=== PATIENT | male | born 2000 | race Caucasian/White ===

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

== ENCOUNTER 2019-09-21 18:21 | Emergency (ER) | payer OTHER ==
[~2019-09-21] VITALS: Ht 182.9 cm; Wt 60.8 kg
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
--- OUTSIDE RECORDS SUMMARY | ~2019-09-21 | XMS | Encounter Summary ---
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 1.30 | [facility] | | | PLASMA | | mg/dL | LABORATORY | | | (LAB) | | | SERVICES, | | | | | | [facility] | | [facility] + | | | | | | HEALING | | + +---------+ + + + | EGFR | >60 | >60 mL/min | [facility] | | | - | | | LABORATORY | | | INDONESIAN | | | SERVICES, | | | | | | [facility] | | [facility] + | | | | | | HEALING | | + +---------+ + + + | EGFR NON | >60 | >60 mL/min | [facility] | | | -SHER | | | LABORATORY | | | RICAN | | | SERVICES, | | | | | | [facility] | | | [facility] + | | | | | | HEALING | | + +---------+ + + + | SODIUM, | 141 | 136 - 145 | [facility] | | | PLASMA | | mmol/L | LABORATORY | | | (LAB) | | | SERVICES, | | | | | | [facility] | | | [facility] + | | | | | | HEALING | | + +---------+ + + + | POTASSIUM, | 4.4 | 3.4 - 5.0 | [facility] | | | PLASMA | | mmol/L | LABORATORY | | | (LAB) | | | SERVICES, | | | | | | [facility] | | | | [facility] + | | | | | | HEALING | | + +---------+ + + + | CHLORIDE, | 104 | 97 - 108 mmol/L | [facility] | | | PLASMA | | | LABORATORY | | | (LAB) | | | SERVICES, | | | | | | [facility] | | | [facility] + | | | | | | HEALING | | + +---------+ + + + | TOTAL CO2, | 30 | 21 - 32 mmol/L | [facility] | | | PLASMA | | | LABORATORY | | | (LAB) | | | SERVICES, | | | | | | [facility] | | | | [facility] + | | | | | | HEALING | | + +---------+ + + + | CALCIUM, | 9.2 | 8.6 - 10.2 | [facility] | | | PLASMA | | mg/dL | LABORATORY | | | (LAB) | | | SERVICES, | | | | | | [facility] | | | | [facility] + | | | | | | HEALING | | + +---------+ + + + | ANION GAP | 7 | 4 - 11 mmol/L | [facility] | | | | | | LABORATORY | | | | | | SERVICES, | | | | | | [facility] | | | | [facility] + | | | | | | HEALING | | + +---------+ + + + | POTASSIUM | No Hemo | | [facility] | | | CMNT | | | LABORATORY | | | | | | SERVICES, | | | | | | [facility] | | | | [facility] + | | | | | | HEALING | | + +---------+ + + + | BUN/CREATIN | 15 | 8 - 25 | [facility] | | | INE RATIO | | | LABORATORY | | | | | | SERVICES, | | | | | | [facility] | | | | | | [facility] + | | | | | | HEALING | | + +---------+ + + + + + | Specimen | + + | Blood - Blood | | (substance) | + + + + + | Narrative | Performed At | + + + | GFR is estimated using the MDRD equation recommended by the National | [facility] | | Kidney Disease Education Program. Estimated GFR Interpretive | LABORATORY | | Information: <60 mL/min/1.73 sq m Chronic Kidney | SERVICES, | | Disease <15 mL/min/1.73 sq m Kidney Failure | CENTER FOR | | Estimated GFR greater than 60 mL/min/1.73 sq m is of limited clinical | HEALTH + | | value. The MDRD equation is not valid in the following situations: | HEALING | | - Patients under 18 years of age - Severe malnutrition or obesity | | | - Vegetarian diet - Rapidly changing kidney function - Amputees, | | | paraplegics, or other muscle-wasting diseases | | + + + + + + + + | Performing | Address | City/State/Zipcode | Phone Number | | Organization | | | | + + + + + | [facility] | [address] | [place] [address] | | | [facility] | | | | | HEALTH + HEALING | | | | + + + + + documented in this encounter Visit Diagnoses + + | Diagnosis | + + | Preop examination - Primary Preoperative examination, unspecified | + + | Injury to blood vessels of lower extremity, left, sequela | + + | Left leg pain Pain in limb | + + | Attention deficit hyperactivity disorder (ADHD), unspecified ADHD type | + + | Tobacco use Tobacco use disorder | + + documented in this encounter
--- OUTSIDE RECORDS SUMMARY | ~2019-09-21 | XMS | Encounter Summary ---
Demographics + + + | Address | [address] | | | [place] [address] | + + + | Home Phone | | + + + | Preferred Language | Unknown | + + + | Marital Status | Single | + + + | Judaism Affiliation | Unknown | + + + | Race | Unknown | + + + | Ethnic Group | or | + + + Author + + + | Author | [facility] | + + + | Organization | [facility] | + + + | Address | Unknown | + + + | Phone | Unavailable | + + + Support + + +---------+ + | Name | Relationship | Address | Phone | + + +---------+ + | Jacque Candice | ECON | Unknown | | + + +---------+ + Care Team Providers + +------+ + | Care Military Aircraft Designer Name | Role | Phone | + +------+ + | Bandar Peace MD | PCP | | + +------+ + Reason for Visit +--------+ + | Reason | Comments | +--------+ + | Other | [facility] | +--------+ + Encounter Details +--------+ + + + + | Date | Type | Department | Care Team | Description | +--------+ + + + + | 07/06/ | Telephone | [facility] | Michael Hills MD | Other ([facility] for | | 2020 | | & Rehabilitation | [address] | Amputation ) | | | | [address] | [place], | | | | | [place] | [place] [address] | | | | | [address] | [phone] | | | | | [phone] | | | +--------+ + + + + Social History + + + +--------+------+ | [...] + + documented as of this encounter Plan of Treatment +--------+ + [...] | Pravin Dominguez MD | | | 2020 | Encounter | | [address] | | | | | | [place] | | | | | | [place] [address] | | | | | | [phone] | | | | | | | | +--------+ + + + + | 10/15/ | Surgery | Surgery | Pravin Dominguez MD | LEFT BELOW KNEE | | 2020 | | | [address] | AMPUTATION | | | | | [place], | | | | | | [place] [address] | | | | | | [phone] | | | | | | | | +--------+ + + + + documented as of this encounter Visit Diagnoses Not on filedocumented in this encounter"
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
--- OUTSIDE RECORDS SUMMARY | ~2019-09-21 | XMS | Encounter Summary ---
Demographics + + + | Address | [address] | | | [place] [address] | + + + | Home Phone | | + + + | Preferred Language | Unknown | + + + | Marital Status | Single | + + + | Scientologist Affiliation | Unknown | + + + | Race | Unknown | + + + | Ethnic Group | or | + + + Author + + + | Author | [facility] | + + + | Organization | [facility] | + + + | Address | Unknown | + + + | Phone | Unavailable | + + + Support + + +---------+ + | Name | Relationship | Address | Phone | + + +---------+ + | Jacque Candice | ECON | Unknown | | + + +---------+ + Care Team Providers + +------+ + | Care Sole Splitter Name | Role | Phone | + +------+ + | Bandar Peace MD | PCP | | + +------+ + Encounter Details +--------+ + + + + | Date | Type | Department | Care Team | Description | +--------+ + + + + | 09/12/ | Telephone | Vascular Surgery | Surgery, Vascular | | | 2020 | | at [facility] [address] | [address] | | | | | [address] | | | | | [facility] [place], | [place] [address] | | | | | [address] [place] [address] | | | | | | [place], [place] | | | | | | [address] | | | | | | [phone] | | | +--------+ + + + [...] | 2019 | Encounter | | [address] | | | | | | [place], | | | | | | [place] [address] | | | | | | [phone] | | | | | | | | +--------+ + + + + | 10/15/ | Surgery | Surgery | Pravin Dominguez MD | LEFT BELOW KNEE | | 2019 | | | [address] | AMPUTATION | | | | | [place], | | | | | | [place] [address] | | | | | | [phone] | | | | | | | | +--------+ + + + + documented as of this encounter Visit Diagnoses Not on filedocumented in this encounter"
--- OUTSIDE RECORDS SUMMARY | ~2019-09-21 | XMS | Encounter Summary ---
Demographics + + + | Address | [address] | | | [place] [address] | + + + | Home Phone | | + + + | Preferred Language | Unknown | + + + | Marital Status | Single | + + + | Nondenominational Affiliation | Unknown | + + + | Race | Unknown | + + + | Ethnic Group | or | + + + Author + + + | Author | [facility] | + + + | Organization | [facility] | + + + | Address | Unknown | + + + | Phone | Unavailable | + + + Support + + +---------+ + | Name | Relationship | Address | Phone | + + +---------+ + | Jacque Candice | ECON | Unknown | | + + +---------+ + Care Team Providers + +------+ + | Care Welfare Interviewer Name | Role | Phone | + +------+ + | Bandar Peace MD | PCP | | + +------+ + Encounter Details +--------+ + + + + | Date | Type | Department | Care Team | Description | +--------+ + + + + | 06/06/ | Telephone | Vascular Surgery | Pravin Dominguez MD | | | 2020 | | at [facility] [address] | [address] | | | | | [address] | [address] [place], | | | | | [place], | [place] [address] | | | | | 2nd Floor | [phone] | | | | | [place], [place] | | | | | | [address] | | | | | | [phone] | | | +--------+ + + + + Social History + +-------+ [...] | | | | | | [place] [address] | | | | | | [phone] | | | | | | | | +--------+ + + + + | 10/15/ | Surgery | Surgery | Pravin Dominguez MD | LEFT BELOW KNEE | | 2019 | | | [address] | AMPUTATION | | | | | [place], | | | | | | [place] [address] | | | | | | [phone] | | | | | | | | +--------+ + + + + documented as of this encounter Results [facility] ARTER DUPLEX LOWER EXTREMITY LT (07/06/2019 12:59 PM PST) + + | Specimen | + + | | + + + + + | Narrative | Performed At | + + + | Left: The duplex scanner was used to evaluate the left lower | [facility] | | extremity bypass graft. The ankle/brachial index on the right is 1.17 | RADIOLOGY VASC | | and on the left, 1.27. Flow velocities in the left common femoral | US | | artery to popliteal artery bypass graft are 83 cm/s at the inflow | | | artery, 75 cm/s at the proximal anastomosis, 64 cm/s in mid graft, and | | | 17 cm/s at the distal anastomosis. The outflow artery velocity is | | | 104 cm/s. Conclusions: A patent bypass graft. No stenosis | | | detected. The ankle brachial index is normal bilaterally; 1.17 on the | | | right, 1.27 left. I have personally reviewed the images | | | and, if necessary, edited the report. I agree with the report as | | | now presented. | | + + + + + | Procedure Note | + + | Service Account, [employer] - 07/06/2019 5:46 PM PST Left: The duplex | | scanner was used to evaluate the left lower extremity bypass graft.The ankle/brachial | | index on the right is 1.17 and on the left, 1.27. Flow velocities in the left common | | femoral artery to popliteal artery bypass graft are 83 cm/s at the inflow artery, 75 | | cm/s at the proximal anastomosis, 64 cm/s in mid graft, and 17 cm/s at the distal | | anastomosis. The outflow artery velocity is 104 cm/s.Conclusions: A patent bypass | | graft. No stenosis detected.The ankle brachial index is normal bilaterally; 1.17 on the | | right, 1.27 left. I have personally reviewed the images and, if necessary, edited the | | report. I agree with the report as now presented. | | | | | | | |I have personally reviewed the images and, if necessary, edited the report. I agree with t he report as now presented. | + + + +---------+ + + | Performing | Address | City/State/Zipcode | Phone Number | | Organization | | | | + +---------+ + + | [facility] | | | | | [facility]ASC [facility] | | | | + +---------+ + + documented in this encounter Visit Diagnoses + + | Diagnosis | + + | Injury to blood vessels of left lower extremity, initial encounter - Primary | + + documented in this encounter"
--- OUTSIDE RECORDS SUMMARY | ~2019-09-21 | XMS | Encounter Summary ---
Demographics + + + | Address | [address] | | | [place] [address] | + + + | Home Phone | | + + + | Preferred Language | Unknown | + + + | Marital Status | Single | + + + | Confucianist Affiliation | Unknown | + + + | Race | Unknown | + + + | Ethnic Group | or | + + + Author + + + | Author | [facility] | + + + | Organization | [facility] | + + + | Address | Unknown | + + + | Phone | Unavailable | + + + Support + + +---------+ + | Name | Relationship | Address | Phone | + + +---------+ + | Jacque Candice | ECON | Unknown | | + + +---------+ + Care Team Providers + +------+ + | Care Captain Waiter/Waitress Name | Role | Phone | + +------+ + | Bandar Peace MD | PCP | | + +------+ + Reason for Visit + + + | Reason | Comments | + + + | Question | Calling back with orthotic contact info | + + + Encounter Details +--------+ + + + + | Date | Type | Department | Care Team | Description | +--------+ + + + + | 09/12/ | Telephone | Vascular Surgery | Pravin Dominguez MD | Question (Calling | | 2020 | | at [facility] [address] | [address] | back with orthotic | | | | [address] | [address] [place], | contact info ) | | | | [facility] [place], | [place] [address] | | | | | 2nd Floor | [phone] | | | | | [place], [place] | | | | | | [address] | | | | | | [phone] | | | +--------+ + + + [...] | | | | | | [place] [address] | | | | | | [phone] | | | | | | | | +--------+ + + + + | 10/15/ | Surgery | Surgery | Pravin Dominguez MD | LEFT BELOW KNEE | | 2019 | | | [address] | AMPUTATION | | | | | [place], | | | | | | [place] [address] | | | | | | [phone] | | | | | | | | +--------+ + + + + documented as of this encounter Visit Diagnoses Not on filedocumented in this encounter"
--- OUTSIDE RECORDS SUMMARY | ~2019-09-21 | XMS | Encounter Summary ---
Demographics + + + | Address | [address] | | | [place] [address] | + + + | Home Phone | | + + + | Preferred Language | Unknown | + + + | Marital Status | Single | + + + | Shinto Affiliation | Unknown | + + + | Race | Unknown | + + + | Ethnic Group | or | + + + Author + + + | Author | [facility] | + + + | Organization | [facility] | + + + | Address | Unknown | + + + | Phone | Unavailable | + + + Support + + +---------+ + | Name | Relationship | Address | Phone | + + +---------+ + | Jacque Candice | ECON | Unknown | | + + +---------+ + Care Team Providers + +------+ + | Care Pull Worker Name | Role | Phone | + [...] | | subsequent | FAMILY | [address] [place], | | | | | encounter | MEDICINE | [place] | | | | | | [address] | [address] | | | | | | [address] | Phone: | | | | | | [place], | [phone] | | | | | | [place] [address] | Fax: | | | | | | Phone: | [phone] | | | | | | [phone] | | | | | | | Fax: | | | | | | | [phone] | | + +--------+ + + + [...] | | [address] | [address] [place], | lower extremity, | | | | [place], | [place] [address] | initial encounter | | | | 2nd Floor | [phone] | (Primary Dx) | | | | [place], [place] | | | | | | [address] | | | | | | [phone] | | | +--------+---------+ + + + [...] his left thigh. He was taken to [facility], where the vascular surgeon controlled a popliteal injury but the patient did not have adequate GSV so he repaired the p opliteal artery with a rifampin soaked Dacron graft. The patient was then transferred to [facility], where he had washout of his fasciotomy, [...] ASA indefinitely MD Bandar Jaffe MD [facility] [address] [place] [address] documented in this enco unter Plan of [...] | | | | | [place] [address], | | | | | | [place] [address] | | | | | | [phone] | | | | | | | | +--------+ + + + + | 10/15/ | Surgery | Surgery | Pravin Dominguez MD | LEFT BELOW KNEE | | 2019 | | | [address] | AMPUTATION | | | | | [address] [place], | | | | | | [place] [address] | | | | | | [phone] | | | | | | | | +--------+ + + + + documented as of this encounter Visit Diagnoses + + | Diagnosis | + + | Injury to blood vessels of left lower extremity, initial encounter - Primary | + + documented in this encounter"
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
--- OUTSIDE RECORDS SUMMARY | ~2019-09-21 | XMS | Encounter Summary ---
Demographics + + + | Address | [address] | | | [place] [address] | + + + | Home Phone | | + + + | Preferred Language | Unknown | + + + | Marital Status | Single | + + + | Restorationism Affiliation | Unknown | + + + | Race | Unknown | + + + | Ethnic Group | or | + + + Author + + + | Author | [facility] | + + + | Organization | [facility] | + + + | Address | Unknown | + + + | Phone | Unavailable | + + + Support + + +---------+ + | Name | Relationship | Address | Phone | + + +---------+ + | Jacque Candice | ECON | Unknown | | + + +---------+ + Care Team Providers + +------+ + | Care Low Emission Automobile Designer Name | Role | Phone | + +------+ + | Bandar Peace MD | PCP | | + +------+ + Reason for Referral Consultation (Routine) + +--------+ + + + + | Status | Reason | Specialty | Diagnoses / | Referred By | Referred To | | | | | Procedures | Contact | Contact | + +--------+ + + + + | Authorized | | Orthopedics | Diagnoses | Alberto, | Jeana, | | | | | Compartment | MD Pravin | MD Michael | | | | | syndrome of | [address] | [address] | | | | | lower leg | [place] | [address] | | | | | ([facility]) | [address] | [place], | | | | | Procedures | [place], [place] | [place] | | | | | CONSULT TO | [address] | [address] | | | | | REHAB | Phone: | Phone: | | | | | MEDICINE/ | [phone] | [phone] | | | | | PHYSIATRY | Fax: | Fax: | | | | | | [phone] | [phone] | + +--------+ + + + + Encounter Details +--------+ + + + + | Date | Type | Department | Care Team | Description | +--------+ + + + + | 05/07/ | Manager Helpdesk | Vascular Surgery | Pravin Dominguez MD | Compartment syndrome | | 2019 | | at [facility] [address] | [address] | of lower leg (HCC) | | | | [address] | [place], | (Primary Dx) | | | | [place], | [place] [address] | | | | | 2nd Floor | [phone] | | | | | [place], [place] | | | | | | [address] | | | | | | [phone] | | | +--------+ + + + + Social History + +-------+ +--------+------+ | Tobacco Use | Types | Packs/Day | Years | Date | | | | | Used | | + +-------+ +--------+------+ | Never Assessed | | | | | + +-------+ +--------+------+ + + + | Sex Assigned at [...] | | | | | | [place] [address] | | | | | | [phone] | | | | | | | | +--------+ + + + + | 10/15/ | Surgery | Surgery | Pravin Dominguez MD | LEFT BELOW KNEE | | 2019 | | | [address] | AMPUTATION | | | | | [place], | | | | | | [place] [address] | | | | | | [phone] | | | | | | | | +--------+ + + + + documented as of this encounter Visit Diagnoses + + | Diagnosis | + + | 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
--- OUTSIDE RECORDS SUMMARY | ~2019-09-21 | XMS | Encounter Summary ---
Demographics + + + | Address | [address] | | | [place] [address] | + + + | Home Phone | | + + + | Preferred Language | Unknown | + + + | Marital Status | Single | + + + | Protestant Affiliation | Unknown | + + + | Race | Unknown | + + + | Ethnic Group | or | + + + Author + + + | Author | [facility] | + + + | Organization | [facility] | + + + | Address | Unknown | + + + | Phone | Unavailable | + + + Support + + +---------+ + | Name | Relationship | Address | Phone | + + +---------+ + | Jacque Candice | ECON | Unknown | | + + +---------+ + Care Team Providers + +------+ + | Care Galley Stripper Name | Role | Phone | + +------+ + | Bandar Peace MD | PCP | | + +------+ + Reason for Referral Consult to [place] (Routine) + +--------+ + + + + | Status | Reason | Specialty | Diagnoses / | Referred By | Referred To | | | | | Procedures | Contact | Contact | + +--------+ + + + + | Authorized | | Vascular | Diagnoses | Veto | Viri Vasc | | | | Surgery | Injury to | MD Ruth | Surg [facility] | | | | | blood | [address] | [address] | | | | | vessels of | [facility] | [address] | | | | | left lower | Rd | Physicians | | | | | extremity, | [facility] [place], [place] | Pavilion[address]nd | | | | | initial | [address] | Floor | | | | | encounter | Phone: | [place], [place] | | | | | Procedures | [phone] | [address] | | | | | REQUEST TO | Fax: | Phone: | | | | | SURGERY | [phone] | [phone] | | | | | [employer] | | Fax: | | | | | [place] | | [phone] | | | | | AMPUTATION | | | | | | | LOW LEG THRU | | | | | | | TIB/FIB | | | + +--------+ + + [...] | | [address] | [address] [place], | | | | | [place], | [place] [address] | | | | | 2nd Floor | [phone] | | | | | [place], [place] | | | | | | [address] | | | | | | [phone] | | | +--------+ + + + [...] | | | | | [address] [place], | | | | | | [place] [address] | | | | | | [phone] | | | | | | | | +--------+ + + + + | 10/15/ | Surgery | Surgery | Pravin Dominguez MD | LEFT BELOW KNEE | | 2019 | | | [address] | [address] | | | | | [place], | | | | | | [place] [address] | | | | | | [phone] | | | | | | | | +--------+ + + + + documented as of this encounter Visit Diagnoses + + | Diagnosis | + + | Injury to blood vessels of left lower extremity, initial encounter - Primary | + + documented in this encounter"
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
--- OUTSIDE RECORDS SUMMARY | ~2019-09-21 | XMS | Encounter Summary ---
Demographics + + + | Address | [address] | | | [place] [address] | + + + | Home Phone | | + + + | Preferred Language | Unknown | + + + | Marital Status | Single | + + + | Yarsanism Affiliation | Unknown | + + + | Race | Unknown | + + + | Ethnic Group | or | + + + Author + + + | Author | [facility] | + + + | Organization | [facility] | + + + | Address | Unknown | + + + | Phone | Unavailable | + + + Support + + +---------+ + | Name | Relationship | Address | Phone | + + +---------+ + | Jacque Candice | ECON | Unknown | | + + +---------+ + Care Team Providers + +------+ + | Care Carton Wrapper Name | Role | Phone | + +------+ + | Bandar Peace MD | PCP | | + +------+ + Encounter Details +--------+ + + + + | Date | Type | Department | Care Team | Description | +--------+ + + + + | 07/12/ | Documentati | [facility] | Michael Hills MD | | | 2020 | on | & Rehabilitation | [address] | | | | | [id number] | [facility], | | | | | [address] [place], [place] | [place] [address] | | | | | [address] | [phone] | | | | | [phone] | | | +--------+ + + + [...] | | | | | [address] [place], | | | | | | [place] [address] | | | | | | [phone] | | | | | | | | +--------+ + + + + | 10/15/ | Surgery | Surgery | Pravin Dominguez MD | LEFT BELOW KNEE | | 2019 | | | [address] | [address] | | | | | [place] [address] [place], | | | | | | [place] [address] | | | | | | [phone] | | | | | | | | +--------+ + + + + documented as of this encounter Visit Diagnoses Not on filedocumented in this encounter"
--- OUTSIDE RECORDS SUMMARY | ~2019-09-21 | XMS | Encounter Summary ---
Demographics + + + | Address | [address] | | | [place] [address] | + + + | Home Phone | | + + + | Preferred Language | Unknown | + + + | Marital Status | Single | + + + | Orthodoxy Affiliation | Unknown | + + + [...] Team Providers + +------+ + | Care Building Services Coordinator Name | Role | Phone | + [...] | | | | vessels of | [facility] | [address] | | | | | left lower | Rd | Physicians | | | | | extremity, | [facility], [place] | [address]ilion, [address]nd | | | | | initial | [address] | Floor | | | | | encounter | Phone: | [place], [place] | | | | | Procedures | [phone] | [address] | | | | | REQUEST TO | Fax: | Phone: | | | | | SURGERY | [phone] | [phone] | | | | | [facility] | | Fax: | | | | | [place] | | [phone] | | | | | [address] | [...] | | [address] | [address] [place], | | | | | Phys[place], | [place] [address] | | | | | 2nd Floor | [phone] | | | | | [place], [place] | | | | | | [address] | | | | | | [phone] | | | +--------+ + + + [...] | | | | | [address] [place], | | | | | | [place] [address] | | | | | | [phone] | | | | | | | | +--------+ + + + + | 10/15/ | Surgery | Surgery | Pravin Dominguez MD | LEFT BELOW KNEE | | 2019 | | | [address] | [place] | | | | | [place] [place], | | | | | | [place] [address] | | | | | | [phone] | | | | | | | | +--------+ + + + + documented as of this encounter Visit Diagnoses + + | Diagnosis | + + | Injury to blood vessels of left lower extremity, initial encounter - Primary | + + documented in this encounter"
--- OUTSIDE RECORDS SUMMARY | ~2019-09-21 | XMS | Encounter Summary ---
Demographics + + + | Address | [address] | | | [place] [address] | + + + | Home Phone | | + + + | Preferred Language | Unknown | + + + | Marital Status | Single | + + + | Temple Affiliation | Unknown | + + + | Race | Unknown | + + + | Ethnic Group | or | + + + Author + + + | Organization | Unknown | + + + | Address | Unknown | + + + | Phone | Unavailable | + + + Support + + +---------+ + | Name | Relationship | Address | Phone | + + +---------+ + | Jacque Harvey | ECON | Unknown | | + + +---------+ + Care Team Providers + +------+ + | Care Bee Keeper Name | Role | Phone | + +------+ + | Bandar Peace MD | PCP | | + +------+ + Encounter Details +--------+--------+ + + + | Date | Type | Department | Care Team | Description | +--------+--------+ + + + | 07/06/ | Travel | | | | | 2020 | | | | | +--------+--------+ + + + Social History + + [...] | | | | | | [place] [address] | | | | | | [phone] | | | | | | | | +--------+ + + + + | 10/15/ | Surgery | Surgery | Pravin Dominguez MD | LEFT BELOW KNEE | | 2019 | | | [address] | AMP[place] | | | | | [place], | | | | | | [place] [address] | | | | | | [phone] | | | | | | | | +--------+ + + + + documented as of this encounter Visit Diagnoses Not on filedocumented in this encounter"
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
--- OUTSIDE RECORDS SUMMARY | ~2019-09-21 | XMS | Encounter Summary ---
Demographics + + + | Address | [address] | | | [place] [address] | + + + | Home Phone | | + + + | Preferred Language | Unknown | + + + | Marital Status | Single | + + + | Cheondoism Affiliation | Unknown | + + + | Race | Unknown | + + + | Ethnic Group | or | + + + Author + + + | Author | [facility] | + + + | Organization | [facility] | + + + | Address | Unknown | + + + | Phone | Unavailable | + + + Support + + +---------+ + | Name | Relationship | Address | Phone | + + +---------+ + | Jacque Candice | ECON | Unknown | | + + +---------+ + Care Team Providers + +------+ + | Care Brazer Electronic Name | Role | Phone | + +------+ + | Bandar Peace MD | PCP | | + +------+ + Encounter Details +--------+ + + + + | Date | Type | Department | Care Team | Description | +--------+ + + + + | 05/09/ | Hospital | Radiology at | Michael Hills MD | | | 2019 | Encounter | [place] [address] | [address] | | | | | [address] | [place], | | | | | [place], [place] | [place] [address] | | | | | [address] | [phone] | | | | | [phone] | | | +--------+ + + + [...] + + documented as of this encounter Medications at Time of Discharge + + + +---------+ + + | Medication | Sig | Dispensed | Refills | Start | End Date | | | | | | Date | | + + + +---------+ + + | aspirin EC 81 mg | Take 81 mg by mouth | | 0 | 02/24/20 | | | oral tablet,delayed | once daily. | | | 19 | | | release (DR/EC) | | | | | | + + + +---------+ + + | bisacodyl EC 5 mg | 5 mg once daily as | | 0 | 02/24/20 | | | oral tablet,delayed | needed. | | | 19 | | | release (DR/EC) | | | | | | + + + +---------+ + + | celecoxib 200 mg | Take 200 mg by mouth | | 0 | 05/04/20 | | | oral capsule | once daily at | | | 19 | | | | bedtime. | | | | | + + + +---------+ + + | gabapentin 600 mg | Take 1,200 mg by | | 0 | 02/24/20 | | | oral tablet | mouth three times | | | 19 | | | | daily. | | | | | + + + +---------+ + + | | Take 1-2 tablets by | | 0 | 05/04/20 | | | HYDROcodone-acetamin | mouth every six | | | 19 | | | ophen 10-325 mg oral | hours as needed. | | | | | | tablet | | | | | | + + + +---------+ + + documented as of this encounter [...] | | | | | | [place], | | | | | | [place] [address] | | | | | | [phone] | | | | | | | | +--------+ + + + + | 10/15/ | Surgery | Surgery | Pravin Dominguez MD | LEFT BELOW KNEE | | 2019 | | | [address] | AMP[address] | | | | | [place], | | | | | | [place] [address] | | | | | | [phone] | | | | | | | | +--------+ + + + + documented as of this encounter Procedures + +--------+ + + + | Procedure Name | Priori | Date/Time | Associated Diagnosis | Comments | | | ty | | | | + +--------+ + + + | X-RAY KNEE 3 VIEWS | Routin | 05/09/2019 | Left knee pain, | Results for this | | LEFT | e | 7:45 AM | unspecified | procedure are in the | | | | PST | chronicity | results section. | + +--------+ + + + documented in this encounter Results X-RAY KNEE 3 VIEWS [...] report as now presented. Final signature: Armando M | | | MD Sahil 05/09/2019 8:11 [...] + | Left knee pain, unspecified chronicity | + + documented in this encounter"
--- OUTSIDE RECORDS SUMMARY | ~2019-09-21 | XMS | Encounter Summary ---
Demographics + + + | Address | [address] | | | [place] [address] | + + + | Home Phone | | + + + | Preferred Language | Unknown | + + + | Marital Status | Single | + + + | Christian Affiliation | Unknown | + + + | Race | Unknown | + + + | Ethnic Group | or | + + + Author + + + | Author | [facility] | + + + | Organization | [facility] | + + + | Address | Unknown | + + + | Phone | Unavailable | + + + Support + + +---------+ + | Name | Relationship | Address | Phone | + + +---------+ + | Jacque Candice | ECON | Unknown | | + + +---------+ + Care Team Providers + +------+ + | Care Cooling Tower Operator Name | Role | Phone | + +------+ + | Bandar Peace MD | PCP | | + +------+ + Reason for Visit + + + | Reason | Comments | + + + | Pre-Op Question | pre-op paper work needing to be faxed | + + + Encounter Details +--------+ + + + + | Date | Type | Department | Care Team | Description | +--------+ + + + + | 07/29/ | Telephone | Vascular Surgery | Surgery, Vascular | Pre-Op Question | | 2020 | | at [facility] [address] | [address] | (pre-op paper work | | | | [address] | [address] | needing to be faxed | | | | Physicians [place], | [place] [address] | ) | | | | 2nd Floor | | | | | | [place], [place] | | | | | | [address] | | | | | | [phone] | | | +--------+ + + + [...] | | | | | | [place] [address] | | | | | | [phone] | | | | | | | | +--------+ + + + + | 10/15/ | Surgery | Surgery | Pravin Dominguez MD | LEFT BELOW KNEE | | 2019 | | | [address] | [address] | | | | | [place], | | | | | | [place] [address] | | | | | | [phone] | | | | | | | | +--------+ + + + + documented as of this encounter Visit Diagnoses Not on filedocumented in this encounter"
--- OUTSIDE RECORDS SUMMARY | ~2019-09-21 | XMS | Encounter Summary ---
Demographics + + + | Address | [address] | | | [place] [address] | + + + | Home Phone | | + + + | Preferred Language | Unknown | + + + | Marital Status | Single | + + + | Restoration Affiliation | Unknown | + + + | Race | Unknown | + + + | Ethnic Group | or | + + + Author + + + | Author | [facility] | + + + | Organization | [facility] | + + + | Address | Unknown | + + + | Phone | Unavailable | + + + Support + + +---------+ + | Name | Relationship | Address | Phone | + + +---------+ + | Jacque Candice | ECON | Unknown | | + + +---------+ + Care Team Providers + +------+ + | Care Neonatologist Name | Role | Phone | + [...] | Visit | Medicine Clinic at | HAND CELL TUBER [address] | (Primary Dx); Injury | | | | [facility] | [address] | to blood vessels of | | | | [address] | [place], [place] | lower extremity, | | | | [facility] | [address] | left, sequela; Left | | | | and Healing Building | [phone] | leg pain; Attention | | | | [facility] [place] | | deficit | | | | [address] | | hyperactivity | | | | [phone] | | disorder (ADHD), | | | [...] Nandini Larson FNP - 07/06/2019 11:25 AM [facility] [[email or web address]] PREOPERATIVE INSTRUCTIONS Pre-surgery "homework" * If you have not already done so, please consider getting your flu vaccine before surgery. This is safe and effective before a surgery and recovery. Surgery check-in location: Admitting - [facility] Surgery Check in Time: you will receive a call 1-3 business days before your surgery confi rming your exact arrival/check-in time for your surgery day. We know that planning for surg gladis can be stressful and involve a lot of family/friend/transportation coordination as well as hotel arrangements. The Preoperative Medicine Clinic does not have access to check in [facility], and we encourage you to contact your [...] it is after office hours, call the [facility] cottrell operator at [phone] and ask them to page him or [...] LEFT BKA on 07/12/2019 Proposed Procedure Location: [facility] HISTORY OF PRESENT ILLNESS: Juan Dumont is [...] underwent repair of the popliteal artery at [facility]. He reports ongoing Lef t lower extremity [...] based on this patients comorbid conditions and xmu-cr-cwznqu y care coordination needs Medication management recommendations: [...] patient's care. ELOY So [facility] Building [address] [place] [address] [phone] (fax) [facility] umented in this encounter Plan of Treatment [...] | | | | | | [place] [address] | | | | | | [phone] | | | | | | | | +--------+ + + + + | 10/15/ | Surgery | Surgery | Pravin Dominguez MD | LEFT BELOW KNEE | | 2019 | | | [address] | [address] | | | | | [place], | | | | | | [place] [address] | | | | | | [phone] | | | | | | | [...] | + +--------+ + + + | AL COLLECTION VENOUS | Routin | 07/06/2019 | [...] [facility] | [address] | [place] [address] | | | SERVICES, | [address] [...] | + + + + + | [facility] | [address] | [place] [address] | | | SERVICES, | [address] [...] [facility] | [address] | [place] [address] | | | SERVICES, | [address] [...] SERVICES, | | | | | | [facility] | | | | | [facility] + | | | | | | [facility]ALING | | + +-------+ + + + | RED CELL | 4.67 | 4.50 - 6.00 | [facility] | | | COUNT | | M/cu mm | LABORATORY | | | | | | SERVICES, | | | | | | [facility] | | | | | | [...] LABORATORY | [address] | [place] [address] | | | [facility] | | | | | HEALTH [...] | | | LABORATORY | | | [place] | | | SERVICES, | | | [...] MDRD equation recommended by the National | [facility] | | Kidney Disease Education Program. Estimated [...] | + + + + + | [facility] | [address] | [place] [address] | | | [facility] | | | | | HEALTH + [...]
--- OUTSIDE RECORDS SUMMARY | ~2019-09-21 | XMS | Encounter Summary ---
Demographics + + + | Address | [address] | | | [place] [address] | + + + | Home Phone | | + + + | Preferred Language | Unknown | + + + | Marital Status | Single | + + + | Mandaen Affiliation | Unknown | + + + | Race | Unknown | + + + | Ethnic Group | or | + + + Author + + + | Author | [facility] | + + + | Organization | [facility] | + + + | Address | Unknown | + + + | Phone | Unavailable | + + + Support + + +---------+ + | Name | Relationship | Address | Phone | + + +---------+ + | Jacque Candice | ECON | Unknown | | + + +---------+ + Care Team Providers + +------+ + | Care Farm Appraiser Name | Role | Phone | + [...] | | | | Physicians [place], | [place] [address] | | | | | [address] [place] [address] | | | | | | [place], [place] | | | | | | [address] | | | | | | [phone] | | | +--------+ + + + [...] | | | | | | [place], | | | | | | [place] [address] | | | | | | [phone] | | | | | | | | +--------+ + + + + | 10/15/ | Surgery | Surgery | Pravin Dominguez MD | LEFT BELOW KNEE | | 2019 | | | [address] | AMPUTATION | | | | | [place], | | | | | | [place] [address] | | | | | | [phone] | | | | | | | | +--------+ + + + + documented as of this encounter Visit Diagnoses Not on filedocumented in this encounter"
--- OUTSIDE RECORDS SUMMARY | ~2019-09-21 | XMS | Encounter Summary ---
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
--- OUTSIDE RECORDS SUMMARY | ~2019-09-21 | XMS | Encounter Summary ---
Demographics + + + | Address | [address] | | | [place] [address] | + + + | Home Phone | | + + + | Preferred Language | Unknown | + + + | Marital Status | Single | + + + | Pentecostal Affiliation | Unknown | + + + | Race | Unknown | + + + | Ethnic Group | or | + + + Author + + + | Author | [facility] | + + + | Organization | [facility] | + + + | Address | Unknown | + + + | Phone | Unavailable | + + + Support + + +---------+ + | Name | Relationship | Address | Phone | + + +---------+ + | Jacque Candice | ECON | Unknown | | + + +---------+ + Care Team Providers + +------+ + | Care Resin Coater Name | Role | Phone | + +------+ + | Bandar Peace MD | PCP | | + +------+ + Encounter Details +--------+ + + + + | Date | Type | Department | Care Team | Description | +--------+ + + + + | 07/06/ | Hospital | Diagnostic Imaging | Pravin Dominguez MD | | | 2020 | Encounter | Services at [facility] | [address] | | | | | [address] | [place], | | | | | [facility] | [place] [address] | | | | | Nathaniel, [address] [place] [address] | [phone] | | | | | [place], [place] | | | | | | [address] | | | | | | [phone] | | | +--------+ + + + [...] | | | | | | [place] [address] | | | | | | [phone] | | | | | | | | +--------+ + + + + | 10/15/ | Surgery | Surgery | Pravin Dominguez MD | LEFT BELOW KNEE | | 2019 | | | [address] | AMPUTATION | | | | | [place] | | | | | | [place] [address] | | | | | | [phone] | | | | | | | [...] | | + +--------+ + + + documented in this encounter Results VASC LAB ARTER DUPLEX LOWER EXTREMITY LT (07/06/2019 [...] Note | + + | Service Account, [employer] In Interface - 07/06/2019 5:46 PM PST [...] vessels of left lower extremity, initial encounter | + + documented in this encounter"
--- OUTSIDE RECORDS SUMMARY | ~2019-09-21 | XMS | Encounter Summary ---
Demographics + + + | Address | [address] | | | [place] [address] | + + + | Home Phone | | + + + | Preferred Language | Unknown | + + + | Marital Status | Single | + + + | Confucianism Affiliation | Unknown | + + + | Race | Unknown | + + + | Ethnic Group | or | + + + Author + + + | Author | [facility] | + + + | Organization | [facility] | + + + | Address | Unknown | + + + | Phone | Unavailable | + + + Support + + +---------+ + | Name | Relationship | Address | Phone | + + +---------+ + | Jacque Candice | ECON | Unknown | | + + +---------+ + Care Team Providers + +------+ + | Care Obstetrical Tech Name | Role | Phone | + +------+ + | Unknown | PCP | Unavailable | + +------+ + Reason for Visit +--------+ + | Reason | Comments | +--------+ + | Trauma | | +--------+ + Encounter Details +--------+ + + + + | Date | Type | Department | Care Team | Description | +--------+ + + + + | 05/04/ | Telephone | Vascular Surgery | Pravin Dominguez MD | Trauma | | 2019 | | at [facility] [address] | [address] | | | | | [place] | [address] [place] | | | | | Physicians [place], | [place] [address] | | | | | 2nd Floor | [phone] | | | | | [place], [place] | | | | | | [address] | | | | | | [phone] | | | +--------+ + + + [...] | | | | | | [place] [address] | | | | | | [phone] | | | | | | | | +--------+ + + + + | 10/15/ | Surgery | Surgery | Pravin Dominguez MD | LEFT BELOW KNEE | | 2019 | | | [address] | AMPUTATION | | | | | [place], | | | | | | [place] [address] | | | | | | [phone] | | | | | | | | +--------+ + + + + documented as of this encounter Visit Diagnoses Not on filedocumented in this encounter"
--- OUTSIDE RECORDS SUMMARY | ~2019-09-21 | XMS | Encounter Summary ---
Demographics + + + | Address | [address] | | | [place] [address] | + + + | Home Phone | | + + + | Preferred Language | Unknown | + + + | Marital Status | Single | + + + | Tenriism Affiliation | Unknown | + + + | Race | Unknown | + + + | Ethnic Group | or | + + + Author + + + | Author | [facility] | + + + | Organization | [facility] | + + + | Address | Unknown | + + + | Phone | Unavailable | + + + Support + + +---------+ + | Name | Relationship | Address | Phone | + + +---------+ + | Jacque Candice | ECON | Unknown | | + + +---------+ + Care Team Providers + +------+ + | Care Medical Information Officer Name | Role | Phone | + +------+ + PCP | Unavailable | + +------+ + Encounter Details +--------+ + + + + | Date | Type | Department | Care Team | Description | +--------+ + + + + | 03/29/ | Abstract | Vascular Surgery | Surgery, Vascular | | | 2019 | | at [facility] [address] | [address] | | | | | [address] | [address] | | | | | Physicians [place], | [place] [address] | | | | | [address] [place] [address] | | | | | | [place], [place] | | | | | | [address] | | | | | | [phone] | | | +--------+ + + + [...] | | | | | Amanda Beard [place], | | | | | | [place] [address] | | | | | | [phone] | | | | | | | | +--------+ + + + + | 10/15/ | Surgery | Surgery | Pravin Dominguez MD | LEFT BELOW KNEE | | 2019 | | | [address] | AMPUTATION | | | | | [place], | | | | | | [place] [address] | | | | | | [phone] | | | | | | | | +--------+ + + + + documented as of this encounter Visit Diagnoses Not on filedocumented in this encounter"
--- OUTSIDE RECORDS SUMMARY | ~2019-09-21 | XMS | Encounter Summary ---
Demographics + + + | Address | [address] | | | [place] [address] | + + + | Home Phone | | + + + | Preferred Language | Unknown | + + + | Marital Status | Single | + + + | Church Affiliation | Unknown | + + + [...] Team Providers + +------+ + | Care Garment Alteration Examiner Name | Role | Phone | + +------+ + | Bandar Peace MD | PCP | | + +------+ + Encounter Details +--------+ + + + + | Date | Type | Department | Care Team | Description | +--------+ + + + + | 07/06/ | Anesthesia | Preoperative | Nandini Larson, | | | 2020 | Event | [facility] at | CINDER CRANE OPERATOR [address] | | | | | [facility] | [facility] | | | | | [address] | [place], [place] | | | | | [facility] | [address] | | | | | [facility] | [phone] | | | | | [address] [place], [place] | | | | | | [address] | | | | | | [phone] | | | +--------+ + + + + Anesthesia Record + + [...] | | | | | | [place] [address] | | | | | | [phone] | | | | | | | | +--------+ + + + + | 10/15/ | Surgery | Surgery | Pravin Dominguez MD | LEFT BELOW KNEE | | 2020 | | | [address] | AMPUTATION | | | | | [place], | | | | | | [place] [address] | | | | | | [phone] | | | | | | | | +--------+ + + + + documented as of this encounter Visit Diagnoses Not on filedocumented in this encounter"
--- OUTSIDE RECORDS SUMMARY | ~2019-09-21 | XMS | Encounter Summary ---
Demographics + + + | Address | [address] | | | [place] [address] | + + + | Home Phone | | + + + | Preferred Language | Unknown | + + + | Marital Status | Single | + + + | Buddhism Affiliation | Unknown | + + + [...] Team Providers + +------+ + | Care Group Work Program Aide Name | Role | Phone | + [...] | | [address] | [address] [place], | | | | | Physicians [place], | [place] [address] | | | | | 2nd Floor | [phone] | | | | | [place], [place] | | | | | | [address] | | | | | | [phone] | | | +--------+ + + + [...] | | | | | | [place] [address] | | | | | | [phone] | | | | | | | | +--------+ + + + + | 10/15/ | Surgery | Surgery | Pravin Dominguez MD | LEFT BELOW KNEE | | 2019 | | | [address] | AMPUTATION | | | | | [place], | | | | | | [place] [address] | | | | | | [phone] | | | | | | | | +--------+ + + + + documented as of this encounter Results [facility] ARTER DUP[facility]OWER EXTREMITY LT [...] Note | + + | Service Account, [employer] In Interface - 07/06/2019 5:46 PM PST [...]
--- OUTSIDE RECORDS SUMMARY | ~2019-09-21 | XMS | Encounter Summary ---
Demographics + + + | Address | [address] | | | [place] [address] | + + + | Home Phone | | + + + | Preferred Language | Unknown | + + + | Marital Status | Single | + + + | Catholic Affiliation | Unknown | + + + [...] Team Providers + +------+ + | Care Upsetter Setter Up Name | Role | Phone | + [...] | [address] | [place] [address] [place], | | | | | [facility] | [place] [address] | | | | | Nathaniel, [address] [place] [address] | [phone] | | | | | [place], [place] | | | | | | [address] | | | | | | [phone] | | | +--------+ + + + [...] | | | | | | [place] [address] | | | | | | [phone] | | | | | | | | +--------+ + + + + | 10/15/ | Surgery | Surgery | Pravin Dominguez MD | LEFT BELOW KNEE | | 2019 | | | [address] | AMPUTATION | | | | | [place] | | | | | | [place] [address] | | | | | | [phone] | | | | | | | [...] Note | + + | Service Account, [employer] In Interface - 07/06/2019 5:46 PM [...]
--- OUTSIDE RECORDS SUMMARY | ~2019-09-21 | XMS | Encounter Summary ---
Demographics + + + | Address | [address] | | | [place] [address] | + + + | Home Phone | | + + + | Preferred Language | Unknown | + + + | Marital Status | Single | + + + | Lutheran Affiliation | Unknown | + + + | Race | Unknown | + + + | Ethnic Group | or | + + + Author + + + | Author | [facility] | + + + | Organization | [facility] | + + + | Address | Unknown | + + + | Phone | Unavailable | + + + Support + + +---------+ + | Name | Relationship | Address | Phone | + + +---------+ + | Jacque Candice | ECON | Unknown | | + + +---------+ + Care Team Providers + +------+ + | Care Commodity Loan Clerk Name | Role | Phone | + [...] | | [place] | [address] [place] | | | | | Physicians [place], | [place] [address] | | | | | 2nd Floor | [phone] | | | | | [place], [place] | | | | | | [address] | | | | | | [phone] | | | +--------+ + + + [...] | | | | | | [place] [address] | | | | | | [phone] | | | | | | | | +--------+ + + + + | 10/15/ | Surgery | Surgery | Pravin Dominguez MD | LEFT BELOW KNEE | | 2019 | | | [address] | AMPUTATION | | | | | [place], | | | | | | [place] [address] | | | | | | [phone] | | | | | | | | +--------+ + + + + documented as of this encounter Visit Diagnoses Not on filedocumented in this encounter"
--- OUTSIDE RECORDS SUMMARY | ~2019-09-21 | XMS | Encounter Summary ---
Demographics + + + | Address | [address] | | | [place] [address] | + + + | Home Phone | | + + + | Preferred Language | Unknown | + + + | Marital Status | Single | + + + | Zoroastrianism Affiliation | Unknown | + + + [...] Team Providers + +------+ + | Care Inventory Checker Name | Role | Phone | + +------+ + | Bandar Peace MD | PCP | | + +------+ + Encounter Details +--------+--------+ + + + | Date | Type | Department | Care Team | Description | +--------+--------+ + + + | 05/09/ | Travel | | | | | 2019 | | | | | +--------+--------+ + + + Social History + +-------+ [...] | | | | | | [place] [address] | | | | | | [phone] | | | | | | | | +--------+ + + + + | 10/15/ | Surgery | Surgery | Pravin Dominguez MD | LEFT BELOW KNEE | | 2019 | | | [address] | AMPUTATION | | | | | [place] | | | | | | [place] [address] | | | | | | [phone] | | | | | | | | +--------+ + + + + documented as of this encounter Visit Diagnoses Not on filedocumented in this encounter"
--- OUTSIDE RECORDS SUMMARY | ~2019-09-21 | XMS | Encounter Summary ---
Demographics + + + | Address | [address] | | | [place] [address] | + + + | Home Phone | | + + + | Preferred Language | Unknown | + + + | Marital Status | Single | + + + | Hindu Affiliation | Unknown | + + + | Race | Unknown | + + + | Ethnic Group | or | + + + Author + + + | Author | [facility] | + + + | Organization | [facility] | + + + | Address | Unknown | + + + | Phone | Unavailable | + + + Support + + +---------+ + | Name | Relationship | Address | Phone | + + +---------+ + | Jacque Candice | ECON | Unknown | | + + +---------+ + Care Team Providers + +------+ + | Care Financial Business Analyst Name | Role | Phone | + [...] | | [address] | [address] [place], | contact info ) | | | | [facility], | [place] [address] | | | | | 2nd Floor | [phone] | | | | | [place], [place] | | | | | | [address] | | | | | | [phone] | | | +--------+ + + + [...] | | | | | | [place] [address] | | | | | | [phone] | | | | | | | | +--------+ + + + + | 10/15/ | Surgery | Surgery | Pravin Dominguez MD | LEFT BELOW KNEE | | 2019 | | | [address] | AMPUTATION | | | | | [place], | | | | | | [place] [address] | | | | | | [phone] | | | | | | | | +--------+ + + + + documented as of this encounter Visit Diagnoses Not on filedocumented in this encounter"
--- OUTSIDE RECORDS SUMMARY | ~2019-09-21 | XMS | Encounter Summary ---
Demographics + + + | Address | [address] | | | [place] [address] | + + + | Home Phone | | + + + | Preferred Language | Unknown | + + + | Marital Status | Single | + + + | Anabaptism Affiliation | Unknown | + + + | Race | Unknown | + + + | Ethnic Group | or | + + + Author + + + | Author | [facility] | + + + | Organization | [facility] | + + + | Address | Unknown | + + + | Phone | Unavailable | + + + Support + + +---------+ + | Name | Relationship | Address | Phone | + + +---------+ + | Jacque Candice | ECON | Unknown | | + + +---------+ + Care Team Providers + +------+ + | Care Lumber Planer Name | Role | Phone | + [...] | | | | | | | [address] | | | | | | | [place] | | | | | | | [place] | | | | | | | [place], [place] | | | | | | | [address] | | | | | | | Phone: | | | | | | | [phone] | | | | | | | Fax: | | | | | | | [phone] | | +--------+--------+ + + + + [...] | | [address] | [address] [place], | | | | | Physicians [place], | [place] [address] | | | | | [address] [place] [address] | [phone] | | | | | [place], [place] | | | | | | [address] | | | | | | [phone] | | | +--------+ + + + [...] | | | | | | [place] [address] | | | | | | [phone] | | | | | | | | +--------+ + + + + | 10/15/ | Surgery | Surgery | Pravin Dominguez MD | LEFT BELOW KNEE | | 2019 | | | [address] | AMPUTATION | | | | | [place] | | | | | | [place] [address] | | | | | | [phone] | | | | | | | [...]
--- OUTSIDE RECORDS SUMMARY | ~2019-09-21 | XMS | Encounter Summary ---
Demographics + + + | Address | [address] | | | [place] [address] | + + + | Home Phone | | + + + | Preferred Language | Unknown | + + + | Marital Status | Single | + + + | Jewish Affiliation | Unknown | + + + | Race | Unknown | + + + | Ethnic Group | or | + + + Author + + + | Author | [facility] | + + + | Organization | [facility] | + + + | Address | Unknown | + + + | Phone | Unavailable | + + + Support + + +---------+ + | Name | Relationship | Address | Phone | + + +---------+ + | Jacque Candice | ECON | Unknown | | + + +---------+ + Care Team Providers + +------+ + | Care Marketing Analytics Analyst Name | Role | Phone | [...] | | 2019 | Encounter | [place] [address] | [address] | | | | | [address] | [place], | | | | | [place], [place] | [place] [address] | | | | | [address] | [phone] | | | | | [phone] | | | +--------+ + + + [...] | | | | | | [place] [address] | | | | | | [phone] | | | | | | | | +--------+ + + + + | 10/15/ | Surgery | Surgery | Pravin Dominguez MD | LEFT BELOW KNEE | | 2019 | | | [address] | AMPUTATION | | | | | [place], | | | | | | [place] [address] | | | | | | [phone] | | | | | | | | +--------+ + + + + documented as of this encounter Procedures + +--------+ + + + | Procedure Name | Priori | Date/Time | Associated Diagnosis | Comments | | | ty | | | | + +--------+ + + + | X-RAY PELVIS 2 VIEWS | Routin | 05/09/2019 | Left knee pain, | Results for this | | | e | 7:45 AM | unspecified | procedure are in the | | | | PST | chronicity | results section. | + +--------+ + + + documented in this encounter Results X-RAY PELVIS 2 VIEWS (05/09/2019 7:45 AM [...]
--- OUTSIDE RECORDS SUMMARY | ~2019-09-21 | XMS | Encounter Summary ---
Demographics + + + | Address | [address] | | | [place] [address] | + + + | Home Phone | | + + + | Preferred Language | Unknown | + + + | Marital Status | Single | + + + | Jain Affiliation | Unknown | + + + | Race | Unknown | + + + | Ethnic Group | or | + + + Author + + + | Author | [facility] | + + + | Organization | [facility] | + + + | Address | Unknown | + + + | Phone | Unavailable | + + + Support + + +---------+ + | Name | Relationship | Address | Phone | + + +---------+ + | Jacque Candice | ECON | Unknown | | + + +---------+ + Care Team Providers + +------+ + | Care Exceptional Needs Teacher Name | Role | Phone | + +------+ + | Bandar Peace MD | PCP | | + +------+ + Reason for Visit + + + | Reason | Comments | + + + | Referral | L leg | + + + Encounter Details +--------+ + + + + | Date | Type | Department | Care Team | Description | +--------+ + + + + | 05/07/ | Abstract | [facility] | Note, Orthopedics | Referral (L leg) | | 2019 | | & Rehabilitation | Clinic | | | | | [address] | | | | | | [address] [place], [place] | | | | | | [address] | | | | | | [phone] | | | +--------+ + + + [...] + + documented as of this encounter Progress Notes Mai Esetla - 05/07/2019 9:08 AM PST Orthopaedics New Patient Record Check List Please ask the following questions: Comments Date requested Records/Imaging received? If so, what format? Where? What would you like to be seen for (body part and laterality)? L leg eval for amputation DOI, if applicable? Feb 10 Prior Surgery (for this body part)? Yes, when: Jan; where: [facility] in [place], also [facility] in [place] Called [facility] to request notes and images 05/07 Have you seen anyone for this yet? Yes, when: ; where: [facility]. Peace in [facility] Also [facility] fax [phone] Do you have a referring provider? yes who: Dr. Alberto MARTINEZ Directed referral?: yes - Michael X-Ray Yes, when: Jan; where: [facility] 05/07 via phone MRI No Other Imaging (CT, Ultrasound, etc.) No Is this a W/C injury? no If YES, create referral and complete: .[email or web address] inside referral Note: We do not accept WC under [place] as they do not pay at [place] rates. Other out of state claims will only be accepted if they agree to pay at [place] rates wilmer almonteed in writing from adjustor. Can you confirm the insurance we will be billing for this visit? Prov Note: If OHP, please note which type. E.g. [place], [employer], [employer], etc.) Reminder: Please create referrals for pts with: HMO, OHP, [place], Self-Pay, W/C, TPL an d ED Post- Ops Can you verify your Primary Care Provider? yes who: Dr. Peace Note: Please update Primary Care Provider in [place]. Are you a current smoker or tobacco user? yes If YES, please let patient know that they must be 4 weeks smoke/tobacco-free, tested and do cumented by PCP before having a surgical consult. Height & Weight, if unable to locate in notes or chart. Last recorded patient height: No data found for Ht No data found for this vital: BMI Patient reported height: 5 11 Patient reported weight: 140 Note: If over provider BMI preference, for REVIEW. Are you diabetic? no No results found for: A1C Patient reported A1C: n/a Note: If over provider A1C preference, for REVIEW. Medical Review needed? No If yes, create referral Reminders: ? Ask patient if they d like to sign up for MyChart ? Don t forget to pull in CareEveryWhere Additional Comments: documented in this encounte r Plan of Treatment +--------+ + + + [...] | | | | | | [place] [address] | | | | | | [phone] | | | | | | | | +--------+ + + + + | 10/15/ | Surgery | Surgery | Pravin Dominguez MD | LEFT BELOW KNEE | | 2019 | | | [address] | AMPUTATION | | | | | [place] | | | | | | [place] [address] | | | | | | [phone] | | | | | | | | +--------+ + + + + documented as of this encounter Visit Diagnoses Not on filedocumented in this encounter"
--- OUTSIDE RECORDS SUMMARY | ~2019-09-21 | XMS | Encounter Summary ---
Demographics + + + | Address | [address] | | | [place] [address] | + + + | Home Phone | | + + + | Preferred Language | Unknown | + + + | Marital Status | Single | + + + | Jew Affiliation | Unknown | + + + [...] Team Providers + +------+ + | Care Tandem Mill Roller Name | Role | Phone | + [...] | | | | | | [place] [address] | | | | | | [phone] | | | | | | | | +--------+ + + + + | 10/15/ | Surgery | Surgery | Pravin Dominguez MD | LEFT BELOW KNEE | | 2019 | | | [address] | AMPUT[address] | | | | | [place] | | | | | | [place] [address] | | | | | | [phone] | | | | | | | | +--------+ + + + + documented as of this encounter Visit Diagnoses Not on filedocumented in this encounter"
--- OUTSIDE RECORDS SUMMARY | ~2019-09-21 | XMS | Encounter Summary ---
Demographics + + + | Address | [address] | | | [place] [address] | + + + | Home Phone | | + + + | Preferred Language | Unknown | + + + | Marital Status | Single | + + + | Presybeterian Affiliation | Unknown | + + + | Race | Unknown | + + + | Ethnic Group | or | + + + Author + + + | Author | [facility] | + + + | Organization | [facility] | + + + | Address | Unknown | + + + | Phone | Unavailable | + + + Support + + +---------+ + | Name | Relationship | Address | Phone | + + +---------+ + | Jacque Candice | ECON | Unknown | | + + +---------+ + Care Team Providers + +------+ + | Care Dobby Loom Fixer Name | Role | Phone | + [...] Rocky Patel | | | | | ([facility]) | [address] | [place], | | | | | Procedures | [place], [place] | [place] | | | | | [place]ULT [place] | [address] | [address] | | | | | REHAB | Phone: | Phone: | | | | | MEDICINE/ | [phone] | [phone] | | | | | PHYSIATRY | Fax: | Fax: | | | | | | [phone] | [phone] | + +--------+ + + + + Encounter Details +--------+ + + + + | Date | Type | Department | Care Team | Description | +--------+ + + + + | 05/07/ | Director Asset | Vascular Surgery | Pravin Dominguez MD | Compartment syndrome | | 2019 | | at [facility] [address] | [address] | of lower leg (HCC) | | | | [address] | [place], | (Primary Dx) | | | | Phys[place], | [place] [address] | | | | | 2nd Floor | [phone] | | | | | [place], [place] | | | | | | [address] | | | | | | [phone] | | | +--------+ + + + [...] | | | | | | [place] [address] | | | | | | [phone] | | | | | | | | +--------+ + + + + | 10/15/ | Surgery | Surgery | Pravin Dominguez MD | LEFT BELOW KNEE | | 2019 | | | [address] | AMPUTATION | | | | | [place], | | | | | | [place] [address] | | | | | | [phone] | | | | | | | | +--------+ + + + + documented as of this encounter Visit Diagnoses + + | Diagnosis | + + | 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
--- OUTSIDE RECORDS SUMMARY | ~2019-09-21 | XMS | Encounter Summary ---
Demographics + + + | Address | [address] | | | [place] [address] | + + + | Home Phone | | + + + | Preferred Language | Unknown | + + + | Marital Status | Single | + + + | Mosque Affiliation | Unknown | + + + | Race | Unknown | + + + | Ethnic Group | or | + + + Author + + + | Author | [facility] | + + + | Organization | [facility] | + + + | Address | Unknown | + + + | Phone | Unavailable | + + + Support + + +---------+ + | Name | Relationship | Address | Phone | + + +---------+ + | Jacque Candice | ECON | Unknown | | + + +---------+ + Care Team Providers + +------+ + | Care Periodontal Assistant Name | Role | Phone | [...] | | | | [address] | [address] | | | | | Phys[facility] [place], | [place] [address] | | | | | [address] [place] [address] | | | | | | [place], [place] | | | | | | [address] | | | | | | [phone] | | | +--------+ + + + [...] | | | | | [place], | | | | | | [place] [address] | | | | | | [phone] | | | | | | | | +--------+ + + + + | 10/15/ | Surgery | Surgery | Pravin Dominguez MD | LEFT BELOW KNEE | | 2019 | | | [address] | AMPUTATION | | | | | [place], | | | | | | [place] [address] | | | | | | [phone] | | | | | | | | +--------+ + + + + documented as of this encounter Visit Diagnoses Not on filedocumented in this encounter"
--- OUTSIDE RECORDS SUMMARY | ~2019-09-21 | XMS | Encounter Summary ---
Demographics + + + | Address | [address] | | | [place] [address] | + + + | Home Phone | | + + + | Preferred Language | Unknown | + + + | Marital Status | Single | + + + | Druze Affiliation | Unknown | + + + | Race | Unknown | + + + | Ethnic Group | or | + + + Author + + + | Author | [facility] | + + + | Organization | [facility] | + + + | Address | Unknown | + + + | Phone | Unavailable | + + + Support + + +---------+ + | Name | Relationship | Address | Phone | + + +---------+ + | Jacque Candice | ECON | Unknown | | + + +---------+ + Care Team Providers + +------+ + | Care Asphalt Machine Operator Name | Role | Phone | [...] | Clinic | | | | | [address] | | | | | | [address] [place], [place] | | | | | | [address] | | | | | | [phone] | | | +--------+ + + + [...] as of this encounter Progress Notes Mai Estela - 05/07/2019 9:08 AM PST Orthopaedics New Patient Record Check List Please ask the following questions: Comments Date requested Records/Imaging received? If so, what format? Where? What would you like to be seen for (body part and laterality)? L leg eval for amputation DOI, if applicable? Feb 10 Prior Surgery (for this body part)? Yes, when: Jan; where: [facility] in [place], also [facility] in [place] Called [facility] to request notes and images 05/07 Have you seen anyone for this yet? Yes, when: ; where: Dr. Peace in [facility] Also [facility] Fax 05/07 to [facility], fax [phone] Do you have a referring provider? yes who: Dr. Alberto MARTINEZ Directed referral?: yes - Michael X-Ray Yes, when: Jan; where: [facility] 05/07 via phone MRI No Other Imaging (CT, Ultrasound, etc.) No Is this a W/C injury? no If YES, create referral and complete: .ORTWCNEWPATIENT inside referral Note: We do not accept WC under [place] as they do not pay at [place] rates. Other out of state claims will only be accepted if they agree to pay at [place] rates wilmer almonteed in writing from adjustor. Can you confirm the insurance we will be billing for this visit? Prov Note: If OHP, please note which type. E.g. [employer], [employer], [employer], etc.) Reminder: Please create referrals for pts with: HMO, OHP, Barber, Self-Pay, W/C, TPL an d ED Post- Ops Can you verify your Primary Care Provider? yes who: Dr. Peace Note: Please update Primary Care Provider in GoToTags. Are you a current smoker or tobacco [...] | | | | | | [place] [address] | | | | | | [phone] | | | | | | | | +--------+ + + + + | 10/15/ | Surgery | Surgery | Pravin Dominguez MD | LEFT BELOW KNEE | | 2019 | | | [address] | AMPUTATION | | | | | [place] | | | | | | [place] [address] | | | | | | [phone] | | | | | | | | +--------+ + + + + documented as of this encounter Visit Diagnoses Not on filedocumented in this encounter"
--- OUTSIDE RECORDS SUMMARY | ~2019-09-21 | XMS | Encounter Summary ---
Demographics + + + | Address | [address] | | | [place] [address] | + + + | Home Phone [...] Team Providers + +------+ + | Care Fire Investigation Lieutenant Name | Role | Phone | + +------+ + | Bandar Peace MD | PCP | | + +------+ + Encounter Details +--------+ + + + + | Date | Type | Department | Care Team | Description | +--------+ + + + + | 07/06/ | Anesthesia | Preoperative | Nandini Larson, | | | 2020 | Event | [facility] | BAND ATTACHER [address] | | | | | [facility] | [facility] | | | | | [address] | [place], [place] | | | | | [facility] | [address] | | | | | and [facility] | [phone] | | | | | [address] [place], [place] | | | | | | [address] | | | | | | [phone] | | | +--------+ + + + [...] | | | | | | [place] [address] | | | | | | [phone] | | | | | | | | +--------+ + + + + | 10/15/ | Surgery | Surgery | Pravin Dominguez MD | LEFT BELOW KNEE | | 2020 | | | [address] | AMPUTATION | | | | | [place], | | | | | | [place] [address] | | | | | | [phone] | | | | | | | | +--------+ + + + + documented as of this encounter Visit Diagnoses Not on filedocumented in this encounter"
--- OUTSIDE RECORDS SUMMARY | ~2019-09-21 | XMS | Encounter Summary ---
Demographics + + + | Address | [address] | | | [place] [address] | + + + | Home Phone | | + + + | Preferred Language | Unknown | + + + | Marital Status | Single | + + + | Islam Affiliation | Unknown | + + + | Race | Unknown | + + + | Ethnic Group | or | + + + Author + + + | Author | [facility] | + + + | Organization | [facility] | + + + | Address | Unknown | + + + | Phone | Unavailable | + + + Support + + +---------+ + | Name | Relationship | Address | Phone | + + +---------+ + | Jacque Candice | ECON | Unknown | | + + +---------+ + Care Team Providers + +------+ + | Care Community Development Officer Name | Role | Phone | [...] | | | | | | [place], | | | | | | | [place] | | | | | | | [address] | | | | | | | Phone: | | | | | | | [phone] | | | | | | | Fax: | | | | | | | [phone] | + +--------+ + + + + Encounter Details +--------+---------+ + + + | Date | Type | Department | Care Team | Description | +--------+---------+ + + + | 05/09/ | Office | [facility] | Michael Hills MD | Left knee pain, | | 2019 | Visit | & Rehabilitation | [address] | unspecified | | | | [address] | [place], | chronicity (Primary | | | | [address] [place], [place] | [place] [address] | Dx) | | | | [address] | [phone] | | | | | [phone] | | | +--------+---------+ + + + [...] asked that a patient seen here at [facility] seek a second opinion on the need for a BKA. Pema mare obtained one at [facility] and said they are making [...] history: Reports/records sent to be scanned into [employer] system. 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 Pertinent items: Physical examination: BP 110/70 [...] following our visit here 2. Will visit [employer] [facility] with Naomie today following 3. At this time, leaning toward BKA with prosthetic 4. Family unsure at this time who would perform the amputation, if they do continue to move forward with amputation. 5. Follow up PRN Michael Hills M.D. [facility] Certified [facility] documented in this [...] | | | | | | [place] [address] | | | | | | [phone] | | | | | | | | +--------+ + + + + | 10/15/ | Surgery | Surgery | Pravin Dominguez MD | LEFT BELOW KNEE | | 2019 | | | [address] | AMPUTATION | | | | | [place] | | | | | | [place] [address] | | | | | | [phone] | | | | | | | [...]
--- OUTSIDE RECORDS SUMMARY | ~2019-09-21 | XMS | Encounter Summary ---
Demographics + + + | Address | [address] | | | [place] [address] | + + + | Home Phone | | + + + | Preferred Language | Unknown | + + + | Marital Status | Single | + + + | Faith Affiliation | Unknown | + + + | Race | Unknown | + + + | Ethnic Group | or | + + + Author + + + | Author | [facility] | + + + | Organization | [facility] | + + + | Address | Unknown | + + + | Phone | Unavailable | + + + Support + + +---------+ + | Name | Relationship | Address | Phone | + + +---------+ + | Jacque Candice | ECON | Unknown | | + + +---------+ + Care Team Providers + +------+ + | Care Bd Special Education Teacher Name | Role | Phone | [...] | Amputation ) | | | | [address] | [place] [address] [place], | | | | | [place] | [place] [address] | | | | | [address] | [phone] | | | | | [phone] | | | +--------+ + + + [...] Hospital | Adult Acute Care | Pravin Dominugez MD | | | 2020 | Encounter | | [address] | | | | | | [place] | | | | | | [place] [address] | | | | | | [phone] | | | | | | | | +--------+ + + + + | 10/15/ | Surgery | Surgery | Pravin Dominguez MD | LEFT BELOW KNEE | | 2020 | | | [address] | AMPUTATION | | | | | [place], | | | | | | [place] [address] | | | | | | [phone] | | | | | | | | +--------+ + + + + documented as of this encounter Visit Diagnoses Not on filedocumented in this encounter"
--- OUTSIDE RECORDS SUMMARY | ~2019-09-21 | XMS | Encounter Summary ---
Demographics + + + | Address | [address] | | | [place] [address] | + + + | Home Phone | | + + + | Preferred Language | Unknown | + + + | Marital Status | Single | + + + | Caodaism Affiliation | Unknown | + + + [...] Team Providers + +------+ + | Care Dairy Helper Name | Role | Phone | + +------+ + | Bandar Peace MD | PCP | | + +------+ + Encounter Details +--------+ + + + + | Date | Type | Department | Care Team | Description | +--------+ + + + + | 05/09/ | Hospital | Radiology at | Michael iHlls MD | | | 2019 | Encounter | [place] [address] | [address] | | | | | [address] | [place], | | | | | [place], [place] | [place] [address] | | | | | [address] | [phone] | | | | | [phone] | | | +--------+ + + + [...] | | | | | | [place] [address] | | | | | | [phone] | | | | | | | | +--------+ + + + + | 10/15/ | Surgery | Surgery | Pravin Dominguez MD | LEFT BELOW KNEE | | 2019 | | | [address] | AMPUTATION | | | | | [place], | | | | | | [place] [address] | | | | | | [phone] | | | | | | | [...]
--- OUTSIDE RECORDS SUMMARY | ~2019-09-21 | XMS | Encounter Summary ---
Demographics + + + | Address | [address] | | | [place] [address] | + + + | Home Phone | | + + + | Preferred Language | Unknown | + + + | Marital Status | Single | + + + | Congregation Affiliation | Unknown | + + + [...] Team Providers + +------+ + | Care Seed Corn Production Manager Name | Role | Phone | + [...] [address] | | | | | [address] | [facility], | | | | | Ct [place], [place] | [place] [address] | | | | | [address] | [phone] | | | | | [phone] | | | +--------+ + + + [...] | | | | | [place] [address] [place], | | | | | | [place] [address] | | | | | | [phone] | | | | | | | | +--------+ + + + + | 10/15/ | Surgery | Surgery | Pravin Dominguez MD | LEFT BELOW KNEE | | 2019 | | | [address] | AMPUTATION | | | | | [place], | | | | | | [place] [address] | | | | | | [phone] | | | | | | | | +--------+ + + + + documented as of this encounter Visit Diagnoses Not on filedocumented in this encounter"
--- OUTSIDE RECORDS SUMMARY | ~2019-09-21 | XMS | Encounter Summary ---
Demographics + + + | Address | [address] | | | [place] [address] | + + + | Home Phone | | + + + | Preferred Language | Unknown | + + + | Marital Status | Single | + + + | Scientology Affiliation | Unknown | + + + | Race | Unknown | + + + | Ethnic Group | or | + + + Author + + + | Author | [facility] | + + + | Organization | [facility] | + + + | Address | Unknown | + + + | Phone | Unavailable | + + + Support + + +---------+ + | Name | Relationship | Address | Phone | + + +---------+ + | Jacque Candice | ECON | Unknown | | + + +---------+ + Care Team Providers + +------+ + | Care Program Advocate Name | Role | Phone | + [...] | | | | [facility] [address], | [place] [address] | ) | | | | 2nd Floor | | | | | | [place], [place] | | | | | | [address] | | | | | | [phone] | | | +--------+ + + + [...] | | | | | | [place] [address] | | | | | | [phone] | | | | | | | | +--------+ + + + + | 10/15/ | Surgery | Surgery | Pravin Dominguez MD | LEFT BELOW KNEE | | 2019 | | | [address] | AMPUTATION | | | | | [place], | | | | | | [place] [address] | | | | | | [phone] | | | | | | | | +--------+ + + + + documented as of this encounter Visit Diagnoses Not on filedocumented in this encounter"
--- OUTSIDE RECORDS SUMMARY | ~2019-09-21 | XMS | Encounter Summary ---
Demographics + + + | Address | [address] | | | [place] [address] | + + + | Home Phone | | + + + | Preferred Language | Unknown | + + + | Marital Status | Single | + + + | Roman Catholic Affiliation | Unknown | + + [...] Team Providers + +------+ + | Care Children'S Aide Name | Role | Phone | [...] | | 2019 | Encounter | [place] [address] | [address] | | | | | [address] | [place], | | | | | [place], [place] | [place] [address] | | | | | [address] | [phone] | | | | | [phone] | | | +--------+ + + + [...] | | | | | | [place] [address] | | | | | | [phone] | | | | | | | | +--------+ + + + + | 10/15/ | Surgery | Surgery | Pravin Dominguez MD | LEFT BELOW KNEE | | 2019 | | | [address] | AMPUTATION | | | | | [place], | | | | | | [place] [address] | | | | | | [phone] | | | | | | | [...]
--- OUTSIDE RECORDS SUMMARY | ~2019-09-21 | XMS | Clinical Summary ---
Demographics + + + | Address | [address] | | | [place] [address] | + + + | Home Phone | | + + + | Preferred Language | Unknown | + + + | Marital Status | Single | + + + | Anabaptist Affiliation | Unknown | + + + | Race | Unknown | + + + | Ethnic Group | or | + + + Author + + + | Author | [facility] | + + + | Organization | [facility] | + + + | Address | Unknown | + + + | Phone | Unavailable | + + + Support + + +---------+ + | Name | Relationship | Address | Phone | + + +---------+ + | Jacque Harvey | ECON | Unknown | | + + +---------+ + Care Team Providers + +------+ + | Care Stone Setter Name | Role | Phone | + +------+ + | Bandar Peace MD | PCP | | + +------+ + Source Comments MICHELLE is fully live on both EpicCare Ambulatory and EpicCare InPatient.[facility] Allergies + + + + + + [...] | 2019 | Event | Medicine | ELEVATOR RUNNER | | +--------+ + + + + | 07/06/ | Hospital | Radiology | Pravin Dominguez MD | | | 2019 | Encounter | | | | +--------+ + + + + | 07/06/ | Office | Pre-operative | Nandini Larson, | Preop examination | | 2019 | Visit | Medicine | ELEVATOR RUNNER | (Primary Dx); Injury | | | [...] | | | | | | [place] [address] | | | | | | [phone] | | | | | | | | +--------+ + + + + | 10/15/ | Surgery | Surgery | Pravin Dominguez MD | LEFT BELOW KNEE | | 2019 | | | [address] | AMPUTATION | | | | | [place], | | | | | | [place] [address] | | | | | | [phone] | | | | | | | [...] | + +--------+ + + + | ND COLLECTION VENOUS | Routin | 07/06/2019 | [...] + + from Last 3 Months Results [facility] ARTER DUPLEX LOWER EXTREMITY LT (07/06/2019 12:59 PM PST) + + | Specimen | + + | | + + + + + | Narrative | Performed At | + + + | Left: The duplex scanner was used to evaluate the left lower | [facility] | | extremity bypass graft. The ankle/brachial index on the right is 1.17 | RADIOLOGY [facility] | | and on the left, 1.27. [...] Note | + + | Service Account, No World Borders In Interface - 07/06/2019 5:46 PM PST [...] [facility] | [address] | [place] [address] | | | SERVICES, | [address] [...] LABORATORY | [address] | [place] [address] | | | SERVICES, [facility] | | | | | HEALTH [...] | | | LABORATORY | | | CYMRO | | | SERVICES, | | | [...] MDRD equation recommended by the National | [facility] | | Kidney Disease Education Program. Estimated [...] | + + + + + | [facility] | [address] | [place] [address] | | | SERVICES, [facility] | | | | | HEALTH [...] [facility] | [address] | [place] [address] | | | SERVICES, | [address] [...] | + + + + + | [facility] | [address] | [place] [address] | | | SERVICES, | [address] [...] | + +--------+ +--------+ + +------+ | [facility] | PHP | [phone] | 05/30/19 | [phone] | [address] | [address] | | | [address] | | [address] | [address] | | [address] | | sent | | [place], | | | | [place] | | | | [place] [address] | | + +--------+ +--------+ + +------+ [...] | 1999 | [phone] | [place] [address] | | | jack | | | 9 (Home) | | + +--------+ +--------+ + +
[2019-09-21] MEDS ORDERED: CELECOXIB200 MG PO (18:37)
[2019-09-21] MEDS ORDERED: HYDROCODON-ACE1 EAC8 PO (18:38)
[2019-09-21] MEDS ORDERED: GABAPENTIN600 MG PO (18:38)
[2019-09-21] MEDS ORDERED: CHILDREN'S ASPI81 M1 PO (18:39)
--- NOTE | 2019-09-22 01:19 | EKG ---
[facility] [address] [facility] [address] [place], [place] [address] Signed Normal sinus rhythm Normal ECG Confirmed by SARAH VELAZQUEZ MD ([id number]) on 09/22/2019 1:18:54 AM Electronically Signed By: SARAH VELAZQUEZ MD 09/22/19 0119 PATIENT NAME: JOSE G ORTIZ ALLI Electrocardiogram DATE OF : 89 PHYSICIAN: SARAH VELAZQUEZ MD REPORT #: [id number] REPORT IS CONFIDENTIAL AND NOT TO BE RELEASED WITHOUT AUTHORIZATION
== END 2019-09-21 23:00 | disposition home or self-care (01) ==
LOC: ED 18:21
DX: R07.9 Chest pain, unspecified (principal); F90.9 Attention-deficit hyperactivity disorder, unspecified type; F17.200 Nicotine dependence, unspecified, uncomplicated; Z88.5 Allergy status to narcotic agent; Z79.899 Other long term (current) drug therapy
CPT/HCPCS: 71045; 71260; 80053; 84484; 85025; 85379; 93005; 93010; 99285-25; Q9967

== ENCOUNTER 2020-07-10 16:26 | Emergency (ER) | payer OTHER ==
[~2020-07-10] VITALS: Ht 182.9 cm; Wt 56.7 kg
[~2020-07-10 16:26] MED LIST changes: +CELECOXIB200 MG PO; +CHILDREN'S ASPI81 M1 PO; +GABAPENTIN600 MG PO; +HYDROCODON-ACE1 EAC8 PO
== END 2020-07-10 19:10 | disposition home or self-care (01) ==
LOC: ED 16:26
DX: S41.011A Laceration without foreign body of right shoulder, initial encounter (principal); S13.9XXA Sprain of joints and ligaments of unspecified parts of neck, initial encounter; V59.9XXA Occupant (driver) (passenger) of pick-up truck or van injured in unspecified traffic accident, initial encounter; F17.200 Nicotine dependence, unspecified, uncomplicated; Z88.5 Allergy status to narcotic agent; Z79.899 Other long term (current) drug therapy; Z79.82 Long term (current) use of aspirin
CPT/HCPCS: 12001; 72040; 73030; 99284-25; J1885

== ENCOUNTER 2020-11-02 19:11 | Emergency (ER) | payer OTHER ==
[~2020-11-02] VITALS: Ht 182.9 cm; Wt 56.7 kg
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
== END 2020-11-02 20:59 | disposition home or self-care (01) ==
LOC: ED 19:11
DX: S09.90XA Unspecified injury of head, initial encounter (principal); V89.2XXA Person injured in unspecified motor-vehicle accident, traffic, initial encounter; F17.200 Nicotine dependence, unspecified, uncomplicated; Z88.5 Allergy status to narcotic agent
CPT/HCPCS: 70450; 99284-25

== ENCOUNTER 2023-10-07 19:45 | Inpatient (IN) | payer OTHER ==
[~2023-10-07] VITALS: Ht 180.3 cm; Wt 70.7 kg
[~2023-10-07 19:45] MED LIST changes: +BACTRIM DS TAB1 EACH PO; +MUPIROCIN22 GM TOP
[2023-10-07] MEDS ORDERED: LACTATED RINGER'S 1,000 ML IV SCH ×2 (20:45→22:00)
[2023-10-07] MEDS ORDERED: ondansetron HCL 4 MG/2 ML VIAL IV ONE (20:45)
[2023-10-07] MEDS ORDERED: MORPHINE SULFATE 4 MG/ML VIAL IV ONE (20:45)
[2023-10-07 20:54] LABS: BASOPHILS 0.8 % (0-2); EOSINOPHILS 0.6 % (0-6); HEMATOCRIT 40.9 % (35.0-50.0); HEMOGLOBIN 13.6 g/dL (12.0-18.0); LYMPHOCYTES 17.4 % (24-44); MCH 31.1 (27-36); MCHC 33.3 g/dl (30-36); MCV 93.5 fl (81-99); NEUTROPHILS 72.2 % (39-80); PLATELET COUNT 317 K/uL (140-440); RBC 4.37 M/ul (4.3-5.7); RDW 14.5 (10.5-15.0)
[2023-10-07 21:00] LABS: INR 0.9 (0.80-1.30); PROTIME 11.4 Sec (11.2-14.2)
[2023-10-07 21:06] LABS: ALBUMIN 3.9 g/dL (3.4-5.0); ALBUMIN/GLOBULIN RATIO 0.98 (1.1-2.4); ANION GAP 13.1 (7-21); BILIRUBIN, TOTAL 0.3 ng/dL (0.2-1.0); BUN/CREATININE RATIO 11.65 (6.0-28.6); CALCIUM 8.5 mg/dL (8.5-10.1); CREATININE, SERUM 1.03 mg/dL (0.70-1.30); POTASSIUM 4.1 mmol/L (3.5-5.1); PROTEIN, TOTAL 7.9 g/dL (6.4-8.2)
[2023-10-07] MEDS ORDERED: FAMOTIDINE 20 MG/ 2 ML VIAL IV SCH (21:53)
[2023-10-07 21:58] LABS: BILIRUBIN, URINE NEGATIVE (negative); BLOOD/HGB, URINE NEGATIVE (Negative); KETONE, URINE NEGATIVE (Negative); LEUK ESTERASE, URINE NEGATIVE (negative); NITRITE, URINE NEGATIVE (negative); PH, URINE 7.5 (5-7)
[2023-10-07] MEDS ORDERED: HYDROmorphone HCL 1 MG/ML SYR IV PRN (22:00)
[2023-10-07] MEDS ORDERED: ondansetron HCL 4 MG/2 ML VIAL IV PRN (22:00)
--- NOTE | 2023-10-07 23:00 | NUR ---
pt ARRIVED TO MS FLOOR, PRIMARY RN IN ROOM AND ASSISTING WITH pt CARES. pt ORIENTED TO ROOM, CALL LIGHT IN REACH. RIGHT BOOT IN PLACE WLONG WITH AN ICE PACK. pt IN GOOD SPIRITS, TV GUIDE AND REMOTE IN REACH, pt EDUCATED ON POC AND NPO ORDERS, pt VERBALIZED UNDERSTANDING.
--- NOTE | 2023-10-07 23:00 | NUR ---
PT ARRIVED TO ROOM 123 VIA STRETCHER WITH SOFIYA SMI, REPORT RECEIVED, PT ALERT AND ORIENTENED, RIGHT FOOT IN BOOT, SUPPORTED WITH TRANSFER TO BED, RIGHT LEG ELEVATED ON PILLOW AND ICE TO ANKLE OVER BOOT, IV PATENT IN LEFT FOREARM WITH GOOD BLOOD RETURN, LR INFUSING WELL AT 85ML/HR.
[2023-10-07 23:07] VITALS: BP 138/86
--- NOTE | 2023-10-07 23:54 | NUR ---
URINAL EMPTIED 400MLS OUTPUT NOTED, NO FURTHER NEEDS. CALL LIGHT IN REACH.
[2023-10-08] VITALS (12 sets, daily range): BP systolic 101–138; BP diastolic 45–86
--- NOTE | 2023-10-08 00:20 | NUR ---
RN CALLED TO ROOM, PT REQUESTING PAIN MED FOR RIGHT ANKLE, PT MEDICATED PER ORDER WITH DILAUDID 0.5MG IV, RIGHT FOOT ELEVATED ON PILLOWS, BOOT REMAINS IN PLACE, ICE TO ANKLE OVER BOOT, PT ATTEMPTING TO REST, IV PATENT, CALL LIGHT IN REACH, BED LOW POSITION.
--- NOTE | 2023-10-08 00:22 | NUR ---
ADMISSION ASSESSMENT COMPLETED, PT RESTING MORE COMFORTABLE AFTER PAIN MEDICATION.
--- NOTE | 2023-10-08 01:34 | NUR ---
RN CALLED TO ROOM, PT REQUESTING PAIN MED FOR 9/10 PAIN IN RIGHT ANKLE, MEDICATED PER ORDER WITH 0.5MG DILAUDID IV, PT STATES LAST SHOT HELPED LAST TIME FOR A WHILE, BUT THEN ANKLE STARTED TO ACHE AGAIN, PT RESTING WITH EYES CLOSED AFTER MEDICATION GIVEN, RIGHT LEG REMAINS ELEVATED ON PILLOWS, BOOT REMAINS IN PLACE, ICE BAGS OVER BOOT TO ANKLE.
--- NOTE | 2023-10-08 05:14 | NUR ---
VS AND I&O'S COLLECTED, PRIMARY RN REMAINS IN ROOM WITH pt. CALL LIGHT IN REACH.
--- NOTE | 2023-10-08 05:39 | NUR ---
PT MEDICATED WITH DILAUDID 0.5MG IV FOR PAIN IN RIGHT ANKLE 9/10, ICE TO ANKLE, PT ATTEMPTING TO REST, PEDAL PULSE AUDIBLE PER DOPPLER ON RIGHT FOOT, TOES WARM, PINK.
[2023-10-08] MEDS ORDERED: TRANEXAMIC ACID 2,000 MG in SODIUM CHLORIDE 0.9% 100 ML IV SCH (07:00)
[2023-10-08] MEDS ORDERED: CEFAZOLIN SODIUM 2 GM/20 ML SYR IV SCH (07:00)
--- NOTE | 2023-10-08 07:03 | NUR ---
RN CALLED TO ROOM, PT STATES DR PICKENS WAS RECENTLY IN TO DISCUSS HIS PLAN OF CARE FOR SURGERY, PT REQUESTING PAIN MEDICATION, MEDICATED WITH DILAUDID 0.5MG IV FOR PAIN 12/06, PT STATES HE FEELS BADLY FOR CALLING FOR OFTEN, PT REASSURED THIS IS IMPORTANT TO CALL WHEN HE IS HAVING PAIN. PT RESTING, FRESH ICE TO RIGHT ANKLE.
--- NOTE | 2023-10-08 07:43 | NUR ---
RECEIVED REPORT FROM CHIQUIS HERRERA. ASSUMING CARE OF PT. PT RESTING IN BED WITH EYES CLOSED, RESPIRATIONS EVEN AND UNLABORED, O2 SATURATION >95% PER CPOX. CALL LIGHT WITHIN REACH.
--- NOTE | 2023-10-08 08:09 | NUR ---
PT AWAKE IN BED, REQUESTS PRN PAIN MEDICATION FOR 8/10 PAIN IN R ANKLE, GIVEN. PT CONTINUES TO BE ON BEDREST. BOOT IN PLACE ON RLE. ICE IN PLACE ON RLE. UNABLE TO ASSESS R PEDAL OR TIBIAL PULSE D/T BOOT REMAINING IN PLACE PER ORDER. RLE HAS BRISK CAP REFILL. LLE STUMP HAS BRISK CAP REFILL. BANDAGE IN PLACE D/T SORE PT STATES HAS BEEN HEALING FOR "A LONG TIME" FROM PROSTHETIC BEING LEFT ON "TOO LONG" AND CAUSING BREAKDOWN. THIS RN UNABLE TO PROPERLY ASEES R ANKLE EDEMA D/T BOOT REMAINING IN PLACE PER ORDER. PT TOLERATING NPO DIET. PT STATES NO NEEDS AT THIS TIME, VERBALIZES UNDERSTANDING OF POC. CALL LIGHT WITHIN REACH.
--- NOTE | 2023-10-08 09:33 | NUR ---
CHG WIPEDOWN DONE. PT HAS A CLEAN GOWN AND NEW BED SHEETS
[2023-10-08] MEDS ORDERED: METOCLOPRAMIDE HCL 10 MG/2 ML SDV ONE (09:51)
[2023-10-08] MEDS ORDERED: DEXAMETHASONE SOD PHOS 4 MG/ML VIAL ONE (09:51)
[2023-10-08] MEDS ORDERED: MIDAZOLAM HCL 2 MG/2 ML VIAL ONE (09:51)
[2023-10-08] MEDS ORDERED: LACTATED RINGER'S 1,000 ML IV ONE (09:51)
[2023-10-08] MEDS ORDERED: propofoL 200 MG/20 ML VIAL ONE (09:51)
[2023-10-08] MEDS ORDERED: ondansetron HCL 4 MG/2 ML VIAL ONE (09:51)
[2023-10-08] MEDS ORDERED: fentaNYL citrate 100 MCG/2 ML VIAL ONE (09:51)
[2023-10-08] MEDS ORDERED: KETAMINE in NS 50 MG/5 ML SYR ONE (09:51)
[2023-10-08] MEDS ORDERED: FAMOTIDINE 20 MG/ 2 ML VIAL ONE (09:51)
[2023-10-08] MEDS ORDERED: KETOROLAC TROMETHAMINE 30 MG/ML VIAL ONE (09:52)
[2023-10-08] MEDS ORDERED: LIDOCAINE HCL 2% 5 ML SDV ONE (09:52)
[2023-10-08] MEDS ORDERED: BUPIVACAINE HCL 0.5% 10 ML SDV ONE (09:58)
[2023-10-08] MEDS ORDERED: SODIUM CHLORIDE 0.9% 100 ML IV ONE (09:58)
--- NOTE | 2023-10-08 10:43 | NUR ---
PT OFF FLOOR TO WITH DAY SURGERY.
[2023-10-08] MEDS ORDERED: MEPERIDINE HCL 25 MG/1 ML VIAL IV PRN (11:15)
[2023-10-08] MEDS ORDERED: IBLOOD GLUCOSE TEST STRIP 1 EA TEST VI PRN (11:15)
[2023-10-08] MEDS ORDERED: METOCLOPRAMIDE HCL 10 MG/2 ML SDV IV PRN (11:15)
[2023-10-08] MEDS ORDERED: droPERidol 5 MG/2 ML VIAL IV PRN (11:15)
[2023-10-08] MEDS ORDERED: NALOXONE HCL 0.4 MG SYR IV PRN ×2 (11:15→11:45)
[2023-10-08] MEDS ORDERED: ondansetron HCL 4 MG/2 ML VIAL IV PRN (11:15)
[2023-10-08] MEDS ORDERED: fentaNYL citrate 50 MCG/ML SDV IV PRN (11:15)
[2023-10-08] MEDS ORDERED: PROCHLORPERAZINE EDISYLATE 10 MG/2 ML VIAL IV PRN (11:15)
[2023-10-08] MEDS ORDERED: ACETAMINOPHEN 1,000 MG/100 ML VIAL ONE (11:27)
[2023-10-08] MEDS ORDERED: SEVOFLURANE 250 ML BTL ONE (11:27)
[2023-10-08] MEDS ORDERED: DICLOFENAC SODI75 MG PO (11:45)
[2023-10-08] MEDS ORDERED: HYDROCODONE/ACETA 7.5/325 TAB PO PRN (11:45)
[2023-10-08] MEDS ORDERED: HYDROCODON-ACE1 EA11 PO (11:45)
[2023-10-08] MEDS ORDERED: TRANEXAMIC ACID IN NACL,ISO-OS 100 ML IV ONE (11:50)
[2023-10-08] MEDS ORDERED: TRANEXAMIC ACID IN NACL,ISO-OS 1,000 MG/100 ML PIGGYBACK IV ONE (12:15)
--- NOTE | 2023-10-08 12:19 | NUR ---
10/08/23 1219 Denisha Mallory 1140 PT ARRIVED IN PACU NON RESPONSIVE TO NOXIOUS STIMULI WITH OPA IN PLACE. R ANKLE DRESSING WITH DRAINAGE ON HEAL. [id number] BLOCKS DONE BY LIYAH. PT REMAINS NON RESPONSIVE WITH OPA IN PLACE. NEW ORDERS RECEIVED FROM 1200 R ANKLE REMOVED GAIL WRAP AND PLACED TWO ABD'S ON BILAT SIDES OF ANKLE, THEN WRAPPED WITH NEW GAIL. 1215 R LEG ELEVATED ON PILLOW. NO CHANGE IN PT STATUS.
--- NOTE | 2023-10-08 12:50 | NUR ---
PT ARRIVES TO FLOOR WITH STORAGE WORKER. PT APPEARS DROWSY, AWAKENS TO TOUCH. VSS. DRESSING ON RLE C/D/I. RECEIVED REPORT FROM CHIQUIS SEGURA. PT STATES NO NEEDS CURRENTLY. CALL LIGHT WITHIN REACH.
--- NOTE | 2023-10-08 13:33 | NUR ---
BOOT PLACED ON RLE PER MD ORDER. PT REQUESTS WATER, APPEARS MORE ALERT THAN ON ARRIVAL, ICE WATER GIVEN, PT ABLE TO DRINK WATER W/O DIFFICULTY.
--- NOTE | 2023-10-08 13:58 | NUR ---
PT TOLERATED EATING PUDDING WELL. WOMENS VOLLEYBALL COACH WILL GIVE PT A SANDWICH BOX AND SEE HOW PT TOLERATES THAT
[2023-10-08] MEDS ORDERED: TRANEXAMIC ACID 2,000 MG in SODIUM CHLORIDE 0.9% 100 ML IV ONE (15:15)
--- NOTE | 2023-10-08 16:00 | NUR ---
PT REQUESTS OPSITE BANDAGE FOR SORE ON LLE STUMP, GIVEN. SORE APPEARS TO BE MOSTLY HEALED AT THIS TIME, NO OPEN AREA UPON ASSESSMENT. PT APPLIES OPSITE DRESSING TO SELF. PT STATES NO FURTHER NEEDS AT THIS TIME, CALL LIGHT WITHIN REACH.
--- NOTE | 2023-10-08 17:35 | NUR ---
PT SITTING UP IN BED, FINISHED WITH DINNER TRAY. PT DENIES ANY PAIN OR NAUSEA AT THIS TIME. PT STATES NO FURTHER NEEDS AT THIS TIME, CALL LIGHT WITHIN REACH.
--- NOTE | 2023-10-08 18:29 | EKG ---
[facility] [address] [place], [place] [address] Signed Sinus tachycardia Otherwise normal ECG When compared with ECG of 07-OCT-2023 20:48, (Unconfirmed) No significant change was found Confirmed by LUH BRIDGES MD ([id number]) on 10/08/2023 6:30:22 PM Electronically Signed By: LUH BRIDGES 10/08/23 1829 PATIENT NAME: JOSE G ORTIZ ALLI Electrocardiogram DATE OF : [birth year] PHYSICIAN: LUH BRIDGES REPORT #: [id number] REPORT IS CONFIDENTIAL AND NOT TO BE RELEASED WITHOUT AUTHORIZATION
--- NOTE | 2023-10-08 18:31 | NUR ---
PT DENIES PAIN OR NAUSEA AT THIS TIME. PT STATES NO NEEDS AT THIS TIME, CALL LIGHT WITHIN REACH.
--- NOTE | 2023-10-08 18:46 | NUR ---
PT REQUESTS ICE WATER, GIVEN.
--- NOTE | 2023-10-08 18:51 | NUR ---
THIS RN SPEAKS WITH DR. PICKENS ON THE TELEPHONE REGARDING PT REQUEST FOR NICOTINE PATCH. MD STATES TO ORDER NICOTINE PATCH 14MG, ORDER PLACED, REPEAT BACK PERFORMED. MD UPDATED ON PT STATUS THAT PT HAS NOT BEEN OUT OF BED D/T RLE NUMB FROM NERVE BLOCK AND LLE HAVING PROSTHETIC, MD STATES PT CAN DC IF RLE IS STILL NUMB. MADE AWARE THAT PT DOSE NOT HAVE ANY AMBULATION ASSITIVE DEVICES AT HOME AND THAT PT HAS NOT WORKED WITH PHYSICAL THERAPY, MD AWARE, NO NEW ORDERS AT THIS TIME.
[2023-10-08] MEDS ORDERED: NICOTINE 14 MG/24 HR 1 EA TDSY TD SCH (19:00)
[2023-10-08] MEDS ORDERED: HYDROCODONE BIT/ACETAMINOPHEN 5/325 MG 1 TAB HOME.PACK PO ONE (20:00)
--- NOTE | 2023-10-08 20:01 | NUR ---
DC PACKET AND EDUCATION GIVEN TO PT. PT VERBALIZES UNDERSTANDING, STATES ALL QUESTIONS HAVE BEEN ANSWERED. PT VERBALIZES UNDERSTANDING OF MOVEMENT RESTRICTIONS WELL IMPORTANCE OF OVERNIGHT ARRANGEMENTS FOR SAFETY D/T NOT HAVING ASSISTIVE DEVICES AT HOME. CPOX DC'D D/T DC ORDER. PT STATES NO NEEDS AT THIS TIME, CALL LIGHT WITHIN REACH.
--- NOTE | 2023-10-08 20:06 | NUR ---
DR. IPCKENS CALLED AGAIN PT DOES NOT HAVE ANY DME AT HOME FOR SAFE DISCHARGE, PT CAN WRITE A SCRIPT TOMORROW FOR HIM IF HE IS OKAY WITH PT LEAVING TONIGHT WITHOUT DME CURRENTLY. VERIFIED WITH PT IF THEY COULD WRITE A PRESCRIPTIONS FOR DME TOMORROW, PT-MELVI STATES IT STILL HAS TO GO THROUGH [facility] FOR INSURANCE ETC. FAMILY WAS ADVISED TO GO TO [facility] TO GET CRUTCHES THIS EVENING FOR SAFETY TRANSFER AND ABILITY TO MAINTAIN WEIGHT BEARING STATUS FOR TOE TOUCH ONLY. PER PT RECOMMENDATION, SHE WOULD PREFER TO MAKE SURE PATIENT IS SAFE BEFORE DISCHARGE, RECOMMENDED WAITING OR DC TILL TOMORROW, BUT AT THIS TIME MD WOULD LIKE PATIENT TO DISCHARGE TONIGHT. MD ALSO INFORMED THAT PHARMACY [facility] IS CURRENTLY CLOSED, PER MD OKAY TO GIVE PREPACK NORCO 5/325MG 1TAB [id number] PRN FOR PAIN FROM ED; PT WILL PICKUP PRESCRIPTION IN THE MORNING; MD INFORMED HE ELECTRONICALLY PRESCRIBED DISCHARGE MEDICATIONS FOR PAIN CONTROL; ATTEMPTED TO CALL [facility], UNABLE TO VERIFY THAT THEY WERE RECEIVED THEY WERE ALREADY CLOSED - PT ADVISED TO CALL FIRST THING IN THE MORNING (PHARMACY OPENS AT 10AM) AND TO CALL IF ANY ISSUES OR MED NOT AVAILABLE. CALL WAS MADE TO [facility]LL REGARDING THE NERVE BLOCK GIVEN THE PT HAS A (L) BKA ALREADY TO UPDATE HE STILL HAS NO FEELING IN LOWER LEG BUT HAD GOOD QUAD MOVEMENT/FLEXION, HE DOES HAVE BOOT IN PLACE, AND HAS SENSATION TO UPPER THIGH; HE VERBALIZED HE SHOULD BE OKAY WITH PROSTHETIC AND QUAD CONTROL TO DISCHARGE HOME WITH NUMBNESS/SENSATION NOT FULLY INTACT TO FOOT/LOWER LEG. DISCHARGE PAPERWORK PROVIDED TO PATIENT, PT EDUCATED VERY CLEARLY NO WEIGHT ON HEEL, TOE TOUCH ONLY AND THAT IS WHY DME IS SO IMPORTANT. PT ALSO ADVISED TO CALL DR. PICKENS OFFICE TUESDAY TO SCHEDULE FOLLOW-UP APPOINTMENT IN 7-[address] PICKENS. FATHER WAS GIVEN UPDATE VIA TELEPHONE, THEY ARE GOING TO [facility] AND THEN WILL ARRIVE TO HELP TRANSPORTATION HOME THIS EVENING.
--- NOTE | 2023-10-08 20:10 | NUR ---
THIS RN WENT DOWN TO ED TO OBTAIN NORCO 5-325MG HOME PACK (ORDER OBTAINED FROM DR PICKENS BY EVONNE SHEFFIELD-SEE HER NOTE FOR ADDITIONAL DETAILS). HOME PACK COMES WITH 6 TABS, TAKE ONE TAB Q4H PRN. VERIFIED WITH SECOND RN YOHANNES, PRIMARY RN JAVIER TO SCAN AND GIVE TO pt BEFORE pt GOES HOME.
--- NOTE | 2023-10-08 20:35 | NUR ---
pt HAS ALLERGY TO CODEINE, CAUSES HIM TO GET NAUSEOUS AND THROW UP PER pt WHEN ASKED. pt HAS DC ORDERS FOR NORCO, pt REPORTS HE'S TAKEN HYDROCODONE IN THE PAST AND BEEN FINE WITH IT. CALLED AND CLARIFIED WITH TELEPHARMACY REGARDING INTERACTION BETWEEN ALLERGY AND NORCO ORDERS. PER TELEPHARMACY, NORCO IS SINTHETIC/MOLECULE BASED AND SHOULD BE FINE. PRIMARY RN UPDATED AND IN ROOM COMPLETING DISCHARGE.
--- NOTE | 2023-10-08 20:45 | NUR ---
PT ALERT AND ORIENTENED, VS COMPLETED PER ARIANA CHEN, VS STABLE, PT MEDICATED WITH ORDERED VOLTAREN, PT PACK OF NORCO GIVEN TO PT, REVIEWED DOSING INSTRUCTIONS, SL REMOVED INTACT, PT STATES LEG ACHING ABOUT 2/10, DECLINES STRONGER PAIN MED, BOOT IN PLACE TO RIGHT LEG, TOES PINK, NO MOVEMENT NOTED OR REPORTED, PT HAS PROSTESIS ON, TRANSFERED TO W/C WITH USE OF CRUTCHES, PT REMAINS ALERT AND ORIENTENED, D'C INSTRUCTIONS IN BAG WITH PT'S BELONGINGS. PARENTS DRIVING PT HOME, PT TRANSFERED TO CAR VIA W/C WITH ARIANA CHEN.
[2023-10-08] MEDS ORDERED: DICLOFENAC SOD 75 MG TABEC PO SCH (21:00)
--- NOTE | 2023-10-10 06:59 | OR ---
[facility] [address] [place], [place] [address] Signed DATE OF OPERATION: 10/08/2023 SURGEON: Flakito Lombardi MD PREOPERATIVE DIAGNOSIS: Bimalleolar fracture dislocation, right ankle. POSTOPERATIVE DIAGNOSIS: Bimalleolar fracture dislocation, right ankle. PROCEDURE PERFORMED: Open reduction and internal fixation, right bimalleolar ankle fracture. LOAN CONSULTANT: None. ANESTHESIA: General. TOURNIQUET TIME: 41 minutes. IMPLANTS: Seven-hole 1/3rd tubular plate with 7 screws laterally and two 4.0 headless Synthes screws medially. BRIEF HISTORY: Jose G is a 23-year-old gentleman, who was bucked off his horse yesterday while intoxicated. He was transported to the ER where radiographs showed a fracture dislocation of the ankle. 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 Risks, benefits, and alternatives of surgery were discussed with him and he elected to proceed. PROCEDURE IN DETAIL: Once consent was obtained, he was taken to the operating room. After adequate anesthesia, he was placed on the operating room bed. A well-padded proximal thigh tourniquet was placed. The leg was prepped and draped in the standard sterile fashion and the leg was exsanguinated using Esmarch bandage. Tourniquet was inflated to 250 mmHg. Standard lateral approach was taken through the skin and subcutaneous tissue. The fracture was then reduced using manual reduction techniques. 7-hole plate was then Electronically Signed By: FLAKITO LOMBARDI MD 10/10/23 0659 PATIENT NAME: JOSE G ORTIZ OPERATIVE REPORT DATE OF : [birth year] REPORT #: [id number] PHYSICIAN: FLAKITO LOMBARDI MD PCP: LIAM COHEN PA-C REPORT IS CONFIDENTIAL AND NOT TO BE RELEASED WITHOUT AUTHORIZATION [facility] [address] [place], [place] [address] Signed fashioned to fit the lateral side of the fibula. It was held in place with a single screw in the center portion. It was then adjusted so that it was aligned properly. The proximal four holes were filled with standard 3.5 mm screws. The three distal screws were completed using 3.5 locking screws. The wound was copiously irrigated with normal saline, closed with 2-0 Monocryl and gwendolyn. The medial side was approached through a curvilinear incision, carried through the skin and subcutaneous tissue. The periosteum and soft tissue were cleared out of the fracture site, which was then significantly anteriorly displaced, was reduced and held with a single clamp. The two guide pins for the 3.5 headless screws were placed under image intensifier guidance. Both guide pins were drilled and a 40 mm headless screw was placed. There was excellent fixation in the bone. The guide pins were removed. The wound was cleansed with normal saline and closed again with 2-0 Monocryl and gwendolyn. Both wounds were dressed with Allevyn Ag dressing, gauze, and an Sam wrap. He was placed back into his fracture boot, taken to the recovery room in satisfactory condition. All sponge, needle, and instrument counts were correct. Flakito Lombardi MD BA/MODL /[id number] Copies: ~ Electronically Signed By: FLAKITO LOMBARDI MD 10/10/23 0659 PATIENT NAME: JOSE G ORTIZ OPERATIVE REPORT DATE OF : [birth year] REPORT #: [id number] PHYSICIAN: FLAKITO LOMBARDI MD PCP: LIAM COHEN PA-C REPORT IS CONFIDENTIAL AND NOT TO BE RELEASED WITHOUT AUTHORIZATION
--- NOTE | 2023-10-10 09:00 | EKG ---
[facility] [address] [place], [place] [address] Signed EKG completed, results pending confirmation PATIENT NAME: JOSE G ORTIZ Electrocardiogram DATE OF : [birth year] PHYSICIAN: PRELIMINARY REPORT #: [id number] REPORT IS CONFIDENTIAL AND NOT TO BE RELEASED WITHOUT AUTHORIZATION
== END 2023-10-08 20:45 | disposition home or self-care (01) | DRG 494 ==
LOC: ED 19:45 → MS 22:04
PROVIDERS: Internal Medicine; ADMIT Specialist; ATTEND Specialist
PROC: 0QSJ04Z Reposition Right Fibula with Internal Fixation Device, Open Approach (ICD-10-PCS; principal; 2023-10-08 10:48)
DX: S82.841A Displaced bimalleolar fracture of right lower leg, initial encounter for closed fracture (principal); F17.210 Nicotine dependence, cigarettes, uncomplicated; V80.010A Animal-rider injured by fall from or being thrown from horse in noncollision accident, initial encounter; Z89.511 Acquired absence of right leg below knee
CPT/HCPCS: 01480; 36415; 73600; 73610; 80053; 81003; 85025; 85610; 93005; 93010; A9270; J0131; J0690; J1100; J1170; J1885; J2001; J2250; J2270; J2405; J2704; J2765; J3010; J3490; J7121

== ENCOUNTER 2025-03-28 19:45 | Emergency (ER) | payer OTHER ==
[~2025-03-28] VITALS: Ht 180.3 cm; Wt 60.0 kg
[~2025-03-28 19:45] MED LIST changes: +DICLOFENAC SODI75 MG PO; +HYDROCODON-ACE1 EA11 PO
[2025-03-28] MEDS ORDERED: OXYCODONE/APAP 7.5/325 TAB PO ONE (23:45)
[2025-03-28] MEDS ORDERED: TETRACAINE HCL 0.5% 4 ML BTL OU SCH (23:45)
[2025-03-29] MEDS ORDERED: OXYCODONE/ACETAMINOPHEN 1 TAB HOME.PACK PO ONE (02:00)
[2025-03-29] MEDS ORDERED: PERCOCET 5-3251 EACH PO (02:14)
[2025-03-29 02:45] VITALS: BP 111/70
== END 2025-03-29 02:45 | disposition home or self-care (01) ==
LOC: ED 19:45
DX: H16.133 Photokeratitis, bilateral (principal); F17.200 Nicotine dependence, unspecified, uncomplicated; Z88.5 Allergy status to narcotic agent; Z79.1 Long term (current) use of non-steroidal anti-inflammatories (NSAID); W89.8XXA Exposure to other man-made visible and ultraviolet light, initial encounter
CPT/HCPCS: 99283